=== PATIENT | female | born 1975 | race Hispanic/Latino ===

== ENCOUNTER → 2017-11-10 | Day surgery (SDC) | payer MEDICARE ==
[~2017-11-10] MED LIST: ATROPINE SULFATE 1 MG/ML VIAL IV ONE; BUPIVACAINE HCL 0.5% INJ 30 ML VIAL INJ ONE; CEFAZOLIN SOD 2 GM/D5W 50ML 50 ML IV ONE; CELEXA40 MG PO; CITALOPRAM HBR20 MG PO; CLONAZEPAM0.25 MG; CYMBALTA20 MG PO; DEXAMETHASONE SOD PHOS INJ 4 MG/ML VIAL IV ONE; DICLOFENAC SODI75 MG PO; EFFEXOR37.5 MG PO; FENTANYL CITRATE/PF 100MCG/2 ML INJ ONE; GABAPENTIN300 MG PO; KETOROLAC TROMETHAMINE 30 MG/ML VIAL IV ONE; LAMICTAL 50 MG; LASIX20 MG PO; LEVEMIR 3M100 UNITS/ SC; LIDOCAINE HCL 2% LOCAL INJ 5 ML SDV VIAL INJ ONE; LINZESS PO; LOVASTATIN 10 MG; METFORMIN HCL1000 MG PO; METFORMIN HCL500 MG PO; MIDAZOLAM HCL 2 MG/2 ML VIAL ONE; MULTIVITAMINS1 EAC8; NEOSTIGMINE 1 MG/ML 10ML VIAL ONE; NOVOLOG100 UNITS1 SC; ONDANSETRON HCL INJ 2 MG/ML VIAL IV ONE; PROPOFOL IV EMULSION 10 MG/ML 20 ML VIAL IV ONE; PROTONIX40 MG/ML PO; SEROQUEL200 MG PO; SEROQUEL25 MG PO; SEVOFLURANE INHAL SOLN 250 ML PEN BTL INH ONE; TRIAMTERENE-HCTZ1 EA PO; ULTRAM 50MG50 MG PO; VASOTEC5 MG PO; VITAMIN B12 INJ
--- NOTE | 2017-11-10 13:14 | Operative Report ---
DATE OF PROCEDURE: November 10, 2017 PICKING MACHINE OPERATOR: None. PREOPERATIVE DIAGNOSES 1. Tailor's bunion, right foot. 2. Hammertoe, 2nd, right foot. 3. Hammertoe, 3rd, right foot. 4. Hammertoe, 4th, right foot. 5. Hammertoe, 5th, right foot. 6. 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 PATHOLOGY: None. ANESTHESIA: General anesthetic. HEMOSTASIS: Pneumatic ankle tourniquet. ESTIMATED BLOOD LOSS: Less than 10 mL. MATERIALS 1. XFuse PIP joint implants for the PIPJ fusions of digits 2, 3, and 4 on the right. 2. Use of human allograft to prevent adhesions and to promote healing. COMPLICATIONS: None. CONDITION: Stable. PROCEDURE IN DETAIL: Under mild sedation, the patient was brought to the operating room and placed on the operating table in the supine position. Following IV sedation, anesthesia was obtained with a general anesthetic. At this point, the right foot was scrubbed, prepped and draped in the usual aseptic manner. It was then lowered to the table. Attention was directed to the dorsal aspect of the right foot, where an incision was made overlying the 2nd digit. The incision was deepened down to the level of the PIP joint. The PIP joint was then visualized. The extensor tendon was then tenotomized. Once the joint was visualized, the joint was prepared for fusion. It was then fused with a OwlTing ??? implant XFuse. There were noted to be adequate compression and adequate alignment clinically and with the use of intraop fluoroscopy. PIP joint arthrodesis, 3rd: This procedure was performed in the same exact manner as the procedure above. PIP joint arthrodesis, 4th: This procedure was performed in the exact same manner as the procedure above. Attention was then directed to the 5th digit, where a 2-cm linear incision was made overlying the proximal interphalangeal joint. The incision was deepened down to the level of the tendon. The extensor tendon was then tenotomized. The proximal phalanx was then removed in order to remove the contracture at the joint. Thee was noted to be a good alignment clinically and with the use of intraop fluoroscopy. Tailor's bunion. Attention was directed to the MPJ of the 5th, where a linear incision was made overlying the joint. The incision was deepened down to the level of the capsule. A linear capsulotomy was then performed, taking care to retract or cauterize neurovascular structures as necessary. Once the 5th metatarsal head was then exposed, utilizing an oscillating saw, the large protrusion exostosis was then removed. The area was then made smooth with a rotary bur. The area was then flushed with a copious amount of normal sterile saline solution. Tenotomy and capsulotomy, 2nd MPJ: Attention was then directed to the 2nd MPJ where a linear incision was made overlying the MPJ. The incision was deepened down to the level of the extensor tendon. The extensor tendon was then lengthened. The brevis was then tenotomized. The contracture was then decreased at the joint. Tenotomy and capsulotomy, 3rd MPJ. This procedure was performed in the exact same manner as the procedure named above. Tenotomy and capsulotomy, 4th MPJ. This procedure was performed in the exact same manner as the procedure named above. The areas were then flushed with copious amounts of normal sterile saline solution. The use of human allograft was then inserted into the area in order to promote healing and to prevent adhesions to the area. The areas were then closed, closing the deepest layer with 4-0 Vicryl and 4-0 nylon. A clean dressing was applied consisting of Adaptic ointment, 4 x 4's, Webril. A posterior splint was applied and was secured utilizing an Vitor bandage. The tourniquet was deflated, and there was noted to be hyperemic response to all the digits. The patient tolerated the procedure and the anesthesia well without complications. She was transported to the recovery room with vital signs stable and vascular status intact to both feet. The patient will be discharged home when she meets criteria. She was given instructions to be nonweightbearing, to ice and elevate the foot while at rest, to follow up with me in the office, and to call the office if any questions, concerns or any problems arise. Job#: [id number]
== END | disposition home or self-care (01) ==
LOC: OR 07:08
PROVIDERS: ATTEND Podiatrist Foot & Ankle Surgery
DX: M21.6X1 Other acquired deformities of right foot (principal); M20.41 Other hammer toe(s) (acquired), right foot; M24.574 Contracture, right foot; I44.7 Left bundle-branch block, unspecified; G47.33 Obstructive sleep apnea (adult) (pediatric); I10 Essential (primary) hypertension; E11.9 Type 2 diabetes mellitus without complications
CPT/HCPCS: 28110; 28270 ×3; 28285 ×4; 93005; J0461; J1100; J1885; J2001; J2250; J2405; J2710

== ENCOUNTER 2018-10-30 11:30 | Emergency (ER) | payer MEDICARE ==
[~2018-10-30] VITALS: Ht 167.6 cm; Wt 68.0 kg
[~2018-10-30 11:30] MED LIST changes: -ATROPINE SULFATE 1 MG/ML VIAL IV ONE; -BUPIVACAINE HCL 0.5% INJ 30 ML VIAL INJ ONE; -CEFAZOLIN SOD 2 GM/D5W 50ML 50 ML IV ONE; -DEXAMETHASONE SOD PHOS INJ 4 MG/ML VIAL IV ONE; -FENTANYL CITRATE/PF 100MCG/2 ML INJ ONE; -KETOROLAC TROMETHAMINE 30 MG/ML VIAL IV ONE; -LIDOCAINE HCL 2% LOCAL INJ 5 ML SDV VIAL INJ ONE; -MIDAZOLAM HCL 2 MG/2 ML VIAL ONE; -NEOSTIGMINE 1 MG/ML 10ML VIAL ONE; -ONDANSETRON HCL INJ 2 MG/ML VIAL IV ONE; -PROPOFOL IV EMULSION 10 MG/ML 20 ML VIAL IV ONE; -SEVOFLURANE INHAL SOLN 250 ML PEN BTL INH ONE
--- OUTSIDE RECORDS SUMMARY | 2018-10-30 11:34 | XMS REPORT | Clinical Summary ---
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 Active furosemide (LASIX) 20 mg Take 20 mg by 0 tablet mouth 2 (two) times a day. Active ranitidine (ZANTAC) 300 Take 300 mg 0 MG capsule by mouth every evening. Active cyclobenzaprine Take 5 mg by 0 (FLEXERIL) 5 mg tablet mouth 3 (three) times a day as needed for muscle spasms. Active topiramate (TOPAMAX) 50 Take 50 mg by 0 MG tablet mouth 2 (two) times a day. Active QUEtiapine (SEROquel) 200 Take 200 mg 0 MG tablet by mouth nightly. Active ondansetron (ZOFRAN) 4 MG Take 4 mg by 0 tablet mouth every 8 (eight) hours as needed for nausea or vomiting. Active lisinopril Take 2.5 mg 0 (PRINIVIL,ZESTRIL) 2.5 mg by mouth tablet daily. Active clonAZEPAM (KlonoPIN) 1 Take 1 mg by 0 MG tablet mouth 2 (two) times a day as needed for seizures. Active Problems Problem Noted Date Cervical spondylosis 05/05/2018 Encounters Care Team Description Date Type Specialty Yovany Prescott MD Spondylosis of cervical region without myelopathy or radiculopathy (Primary Dx) 05/05/2018 Office Visit Neurosurgery after 10/29/2017 Family History Medical History Relation Name Comments Cancer Paternal HIGH BLOOD PRESSURE/DIABETES, HEART PROBLEMS/GOUT, Grandfather THYROID TO LITTLE, THYROID TOO MUCH Relation Name Status Comments Paternal Grandfather Other Social History Date Tobacco Use Types Packs/Day Years Used Never Smoker Smokeless Tobacco: Never Used Alcohol Use Drinks/Week oz/Week Comments No Sex Assigned at Date Recorded Not on file Industry Job Start Date Occupation Not on file Not on file Not on file Travel End Travel History Travel Start No recent travel history available. Last Filed Vital Signs Time Taken Vital Sign Reading - Blood Pressure - - Pulse - - Temperature - - Respiratory Rate - - Oxygen Saturation - - Inhaled Oxygen - Concentration 05/01/2018 8:52 AM CDT Weight 65.8 kg (145 lb) 05/01/2018 8:52 AM CDT Height 167.6 cm (5' 6") 05/01/2018 8:52 AM CDT Body Mass Index 23.4 Plan of Treatment Health Maintenance Due Date Last Done Comments CERVICAL CANCER SCREENING 1994 INFLUENZA VACCINE 06/23/2018 HEPATITIS B VACCINES Aged Out No longer eligible based on patient's age to complete this topic IPV VACCINES Aged Out No longer eligible based on patient's age to complete this topic MENINGOCOCCAL VACCINE Aged Out No longer eligible based on patient's age to complete this topic Results Not on fileafter 10/29/2017 Insurance Payer Benefit Subscriber ID Type Phone Address Plan / Group MEDICARE MEDICARE xxxxxxxxxx Medicare [place], [place] PART A [place] B MEDICAID MEDICAID xxxxxxxxx Medicaid Advance Directives Patient has advance care planning documents on file. For more information, arnol jimenez contact: Tin Spencer [phone] [place] [address]
--- OUTSIDE RECORDS SUMMARY | 2018-10-30 11:34 | XMS REPORT | Continuity of Care Document ---
Author Author Randa noy [facility] Interface Address Unknown Phone Unavailable Problems Problem Status Onset Date Classification Date Reported Comments Source Pain in right foot 01/29/2018 05/01/2018 [facility] RT FOOT AND ANKLE Active 12/17/2017 [facility] RUQ PAIN Active 10/20/2017 [facility] SI Active 09/15/2017 [facility] Discharge Diagnosis: LUQ abdominal pain 02/05/2017 02/09/2017 [facility] Discharge Diagnosis: Vertigo 02/05/2017 02/09/2017 [facility] VOMITING Active 02/05/2017 [facility] I50.22 - CHRONIC SYSTOLIC (CONGESTIVE) Active 12/04/2016 [facility] [place] [place] NAUSEA/VOMITING Active 03/08/2016 [facility] DEHYDRATION, NEW ONSET VERTIGO Active 03/08/2016 [facility] 726.2 - SHOULDER REGION Active 08/20/2015 [facility] [place] Discharge Diagnosis: Back pain 03/06/2015 03/08/2015 [facility] 724.4 - LUMBOSACRAL BIJAL Active 03/06/2015 [facility] [place] LUMBAR RADICULOPATHY WITH NEURO DEFICITS Active 03/03/2015 [facility] 789.06 - ABDMNAL PAIN EP Active 12/08/2013 [facility] Apnea, sleep Resolved Problem 05/21/2018 [facility] Depression Resolved Problem 05/21/2018 [facility] [place] Diabetes Resolved Problem 05/21/2018 [facility] HDL - High density lipoprotein cholesterol Resolved Problem 05/21/2018 [facility] HTN (<span ID="[id number]">Confirmed</span>) Resolved Problem 05/21/2018 [facility] [place] HTN (<span ID="[id number]">Confirmed</span>) Resolved Problem 05/21/2018 [facility] Depression with anxiety Resolved Problem 05/21/2018 [facility] Suicidal ideations Resolved Problem 05/21/2018 [facility] Stiffness of right foot, not elsewhere classified 05/01/2018 [facility] Difficulty in walking, not elsewhere classified 05/01/2018 [facility] Muscle wasting and atrophy, not elsewhere classified, unspecified site 05/01/2018 [facility] Other hammer toe (acquired), right foot 05/01/2018 [facility] Apnea, sleep Resolved Problem 05/01/2018 [facility] Diabetes Resolved Problem 05/01/2018 [facility] HDL - High density lipoprotein cholesterol Resolved Problem 05/01/2018 [facility] HTN (<span ID="[id number]">Confirmed</span>) Resolved Problem 05/01/2018 [facility] Depression with anxiety Resolved Problem 05/01/2018 [facility] Suicidal ideations Resolved Problem 05/01/2018 [facility] RIGHT UPPER QUADRANT PAIN Active [facility] Medications Medication Details Route Status Patient Instructions Ordering Provider Order Date Source Zofran 4 mg, Route: IVP, Drug form: INJ, ONCE, Dosing Weight 75, kg, Priority: STAT, Start date: 09/15/17 20:14:00 CDT, Stop date: 09/15/17 20:14:00 CDT Inactive 09/16/2017 [facility] Latuda 40 mg, Route: PO, ONCE, Dosing Weight 75, kg, Start date: 09/15/17 19:51:00 CDT, Stop date: 09/15/17 19:51:00 CDT Inactive 09/16/2017 [facility] Ondansetron 4 mg, Route: IVP, Drug form: INJ, ONCE, Dosing Weight 75, kg, Priority: STAT, Start date: 09/15/17 16:38:00 CDT, Stop date: 09/15/17 16:38:00 CDT Inactive 09/15/2017 [facility] Ativan 1 mg, 0.5 mL, Route: IVP, Drug form: INJ, ONCE, Dosing Weight 75, kg, Priority: STAT, Start date: 09/15/17 15:37:00 CDT, Stop date: 09/15/17 15:37:00 CDTNotes: (Same as: Ativan) Inactive 09/15/2017 [facility] NS (Bolus) IV 1,000 mL, 1,000 ml/hr, Infuse Over: 1 hr, Route: IV, 1,000, Drug form: INJ, ONCE, Priority: STAT, Dosing Weight 75 kg, Start date: 09/15/17 14:42:00 CDT, Duration: 1 doses or times, Stop date: 14:42:00 CDT Inactive 09/15/2017 [facility] meclizine 25 mg oral tablet 25 mg=1 tab, PO, TID, PRN dizziness, X 10 day, # 30 tab, 0 Refill(s) Active 02/06/2017 [facility] Morphine 4 mg, 1 mL, Route: IVP, Drug form: SOLN, ONCE, Dosing Weight 72.727, kg, Priority: STAT, Start date: 02/05/17 19:31:00 CDT, Stop date: 02/05/17 19:31:00 CDTNotes: (Same as:MORPhine Sulfate) Inactive 02/06/2017 [facility] Benadryl 50 mg, 1 mL, Route: IVP, Drug form: INJ, ONCE, Dosing Weight 72.727, kg, Priority: STAT, Start date: 02/05/17 18:51:00 CDT, Stop date: 02/05/17 18:51:00 CDTNotes: (Same as: Benadryl) Inactive 02/05/2017 [facility] Reglan 10 mg, 2 mL, Route: IVP, Drug form: INJ, ONCE, Dosing Weight 72.727, kg, Priority: STAT, Start date: 02/05/17 18:51:00 CDT, Stop date: 02/05/17 18:51:00 CDTNotes: (Same as: Reglan) Inactive 02/05/2017 [facility] pantoprazole 40 MG Enteric Coated Tablet [Protonix] 40 mg=1 tab, PO, Daily, # 30 tab, 0 Refill(s) Active 03/09/2016 [facility] Ondansetron 4 MG Oral Tablet [Zofran] 4 mg=1 tab, PO, Q6H, PRN Nausea, # 20 tab, 0 Refill(s) Active 03/09/2016 [facility] meclizine 25 mg oral tablet 25 mg=1 tab, PO, TID, PRN as needed for dizziness, # 30 tab, 0 Refill(s) Active 03/09/2016 [facility] Meclizine 25 mg, 1 tab, Route: PO, Drug form: TAB, TID, Dosing Weight 100.9, kg, Priority: NOW, Start date: 03/09/16 11:29:00 CDT, Duration: 30 day, Stop date: 04/08/16 9:00:00 CDTNotes: (Same as: Antivert) Inactive 03/09/2016 [facility] potassium chloride 40 mEq, 30 mL, Route: PO, Drug form: LIQ, ONCE, Dosing Weight 100.9, kg, Start date: 03/09/16 11:27:00 CDT, Stop date: 03/09/16 11:27:00 CDTNotes: (Same as: Potassium Chloride) Inactive 03/09/2016 [facility] Solu-Medrol 125 mg, 2 mL, Route: IVP, Drug form: INJ, ONCE, Dosing Weight 100.9, kg, Start date: 03/09/16 11:26:00 CDT, Stop date: 03/09/16 11:26:00 CDTNotes: (Same as:Solu-MEDROL, A-Methapred) Inactive 03/09/2016 [facility] Protonix 40 mg, Route: IVP, Drug form: INJ, ONCE, Dosing Weight 100.9, kg, Start date: 03/09/16 11:26:00 CDT, Stop date: 03/09/16 11:26:00 CDTNotes: For IV push reconstitute with 10 ml 0.9% sodium chloride and push over 2 minutes. (Same as: Protonix) Inactive 03/09/2016 [facility] Thiamine 100 mg, 1 mL, Route: IVPB, Drug form: INJ, ONCE, Dosing Weight 100.9, kg, Start date: 03/09/16 11:26:00 CDT, Stop date: 03/09/16 11:26:00 CDTNotes: (Same As: Vitamin B1) Inactive 03/09/2016 [facility] nitroglycerin 0.4 mg sublingual tablet 0.4 mg, 1 tab, Route: SL, Drug form: TAB, Q5Min, PRN Chest Pain, Start date: 03/08/16 21:50:00 CDT, Duration: 30 day, Stop date: 04/07/16 21:49:00 CDTNotes: (Same as:Nitroquick, Nitrostat) "Do Not Crush" Sublingual tablet No Longer Active 03/09/2016 [facility] atropine 0.5 mg, 5 mL, Route: IVP, Drug form: INJ, PRN, PRN Bradycardia, Start date: 03/08/16 21:50:00 CDT, Duration: 30 day, Stop date: 04/07/16 21:49:00 CDT No Longer Active 03/09/2016 [facility] normal saline 0.9% IV 1,000 mL 1,000 mL, Rate: 100 ml/hr, Infuse over: 10 hr, Route: IV, Dosing Weight 100.909 kg, Total Volume: 1,000, Start date: 03/08/16 17:57:00 CDT, Stop date: 04/07/16 17:56:00 CDT No Longer Active 03/08/2016 [facility] Meclizine 25 mg, 1 tab, Route: PO, Drug form: TAB, ONCE, Dosing Weight 100.909, kg, Priority: STAT, Start date: 03/08/16 17:48:00 CDT, Stop date: 03/08/16 17:48:00 CDTNotes: (Same as: Antivert) Inactive 03/08/2016 [facility] Insulin, Aspart, Human 5 unit, 0.05 mL, Route: SUB-Q, Drug form: SOLN, TID-Before Meals, Dosing Weight 100.909, kg, PRN Blood Glucose Results, Start date: 03/08/16 17:47:00 CDT, Duration: 30 day, Stop date: 04/07/16 17:46:00 CDTNotes: Roll in palms of hands gently; Do not shake vigorously. (Same as: NovoLOG) "single patient use only" WASTE: F/P - Black; E - Municipal Trash Bin Stable for 28 days at room temperature. Expires in days from Date No Longer Active 03/08/2016 [facility] Glucagon 1 mg, Route: IM, Drug form: PDR/INJ, PRN, Dosing Weight 100.909, kg, PRN Blood Glucose Results, Start date: 03/08/16 17:47:00 CDT, Duration: 30 day, Stop date: 04/07/16 17:46:00 CDT No Longer Active 03/08/2016 [facility] Dextrose 50% Syringe 25 gm, 50 mL, Route: IVP, Drug Form: INJ, Dosing Weight 100.909, kg, PRN, PRN Blood Glucose Results, Start date: 03/08/16 17:47:00 CDT, Duration: 30 day, Stop date: 04/07/16 17:46:00 CDT No Longer Active 03/08/2016 [facility] Acetaminophen 325 mg, 1 tab, Route: PO, Drug form: TAB, Q4H, Dosing Weight 100.909, kg, PRN Pain Score 4-6, Start date: 03/08/16 17:46:00 CDT, Duration: 30 day, Stop date: 04/07/16 17:45:00 CDTNotes: Do not exceed 4 gm/day. (Same as: Tylenol) No Longer Active 03/08/2016 [facility] Morphine 2 mg, 1 mL, Route: IVP, Drug form: INJ, Q4H, Dosing Weight 100.909, kg, PRN Pain Score 7-10, Start date: 03/08/16 17:46:00 CDT, Duration: 30 day, Stop date: 04/07/16 17:45:00 CDTNotes: (Same as:MORPhine Sulfate) No Longer Active 03/08/2016 [facility] Ondansetron 4 mg, 2 mL, Route: IVP, Drug form: INJ, Q6H, Dosing Weight 100.909, kg, PRN Nausea & Vomiting, Start date: 03/08/16 17:46:00 CDT, Duration: 30 day, Stop date: 04/07/16 17:45:00 CDTNotes: (Same as: Zofran) MEDICATION WASTE Product Size: 4 mg Product Wasted: ___ mg No Longer Active 03/08/2016 [facility] Sodium Chloride 0.154 MEQ/ML Injectable Solution 1,000 mL, 1,000 ml/hr, Infuse Over: 1 hr, Route: IV, 1,000, Drug form: INJ, ONCE, Priority: STAT, Dosing Weight 100.909 kg, Start date: 03/08/16 15:58:00 CDT, Duration: 1 doses or times, Stop date: 03/08/16 15:58:00 CDT Inactive 03/08/2016 [facility] Meclizine 25 mg, 1 tab, Route: PO, Drug form: TAB, ONCE, Dosing Weight 100.909, kg, Priority: STAT, Start date: 03/08/16 15:40:00 CDT, Stop date: 03/08/16 15:40:00 CDTNotes: (Same as: Antivert) Inactive 03/08/2016 [facility] Sodium Chloride 0.154 MEQ/ML Injectable Solution 1,000 mL, 1,000 ml/hr, Infuse Over: 1 hr, Route: IV, 1,000, Drug form: INJ, ONCE, Priority: STAT, Dosing Weight 100.909 kg, Start date: 03/08/16 15:15:00 CDT, Duration: 1 doses or times, Stop date: 03/08/16 15:15:00 CDT Inactive 03/08/2016 [facility] potassium chloride 10 mEq, 100 mL, Route: IVPB, Drug form: INJ, Q1H, Dosing Weight 100.909, kg, Total Dose=40 meq, Start date: 03/08/16 15:00:00 CDT, Duration: 4 doses or times, Stop date: 03/08/16 18:00:00 CDT, Peripheral LineNotes: Infuse at a rate of 10 mEq/hr. (Same as: KCL) Inactive 03/08/2016 [facility] Tylenol 650 mg, 2 tab, Route: PO, Drug form: TAB, ONCE, Dosing Weight 100.909, kg, Priority: STAT, Start date: 03/08/16 14:23:00 CDT, Stop date: 03/08/16 14:23:00 CDTNotes: Do not exceed 4 gm/day. (Same as: Tylenol) Inactive 03/08/2016 [facility] Sodium Chloride 0.154 MEQ/ML Injectable Solution 1,000 mL, 1,000 ml/hr, Infuse Over: 1 hr, Route: IV, 1,000, Drug form: INJ, ONCE, Priority: STAT, Dosing Weight 100.909 kg, Start date: 03/08/16 14:22:00 CDT, Duration: 1 doses or times, Stop date: 03/08/16 14:22:00 CDT Inactive 03/08/2016 [facility] Ondansetron 4 mg, 2 mL, Route: IVP, Drug form: INJ, ONCE, kg, Priority: STAT, Start date: 03/08/16 11:33:00 CDT, Stop date: 03/08/16 11:33:00 CDTNotes: (Same as: Zofran) MEDICATION WASTE Product Size: 4 mg Product Wasted: ___ mg Inactive 03/08/2016 [facility] Famotidine 20 mg, 2 mL, Route: IVP, Drug form: INJ, ONCE, kg, Priority: STAT, Start date: 03/08/16 11:33:00 CDT, Stop date: 03/08/16 11:33:00 CDTNotes: (Same as: Pepcid) Can be dilute in 5-10cc NS IVP: Slow IV push over at least 2 minutes. Inactive 03/08/2016 [facility] GI cocktail 30 mL, Route: PO, Drug Form: SUSP, kg, ONCE, STAT, Start date: 03/08/16 11:33:00 CDT, Stop date: 03/08/16 11:33:00 CDTNotes: G.I. Cocktail=antacid with simethicone 22.5 mL - lidocaine viscous 7.5 mL Inactive 03/08/2016 [facility] Saline Flush 0.9% 10 mL, Route: IVP, Drug Form: INJ, kg, PRN, PRN Line Flush, Start date: 03/08/16 11:33:00 CDT, Duration: 30 day, Stop date: 04/07/16 11:32:00 CDTNotes: (Same as: BD Posiflush) No Longer Active 03/08/2016 [facility] Sodium Chloride 0.154 MEQ/ML Injectable Solution 1,000 mL, 1000 ml/hr, Infuse Over: 1 hr, Route: IV, 1,000, Drug form: INJ, ONCE, Priority: STAT, kg, Start date: 03/08/16 11:33:00 CDT, Duration: 1 doses or times, Stop date: 03/08/16 11:33:00 CDT Inactive 03/08/2016 [facility] Acetaminophen 325 MG / Hydrocodone Bitartrate 5 MG Oral Tablet 1 tab, Route: PO, Drug Form: TAB, Dosing Weight 118.182, kg, ONCE, STAT, Start date: 03/06/15 10:43:00, Stop date: 03/06/15 10:43:00 Inactive 03/06/2015 [facility] Ondansetron 4 mg, Route: IVP, Drug form: INJ, ONCE, Dosing Weight 118.182, kg, Priority: STAT, Start date: 03/06/15 10:23:00, Stop date: 03/06/15 10:23:00 Inactive 03/06/2015 [facility] Morphine 4 mg, Route: IVP, Drug form: INJ, ONCE, Dosing Weight 118.182, kg, Priority: STAT, Start date: 03/06/15 6:58:00, Stop date: 03/06/15 6:58:00 Inactive 03/06/2015 [facility] Ativan 1 mg, Route: IVP, Drug form: INJ, ONCE, Dosing Weight 118.182, kg, Priority: STAT, Start date: 03/06/15 6:58:00, Stop date: 03/06/15 6:58:00 Inactive 03/06/2015 [facility] Zofran 4 mg, Route: IVP, Drug form: INJ, ONCE, Dosing Weight 118.182, kg, Priority: STAT, Start date: 03/06/15 4:10:00, Stop date: 03/06/15 4:10:00 Inactive 03/06/2015 [facility] NS 1,000 mL 1,000 mL, Rate: 1,000 ml/hr, Infuse over: 1 hr, Route: IV, Dosing Weight 118.182 kg, Total Volume: 1,000, Start date: 03/06/15 4:09:00, Duration: 1 doses or times, Stop date: 03/06/15 5:08:00, Bolus DoseSpecial Instructions: Bolus Dose Inactive 03/06/2015 [facility] Dilaudid 1 mg, Route: IVP, ONCE, Dosing Weight 118.182, kg, Priority: STAT, Start date: 03/06/15 4:09:00, Stop date: 03/06/15 4:09:00 Inactive 03/06/2015 [facility] Allergies, Adverse Reactions, Alerts Substance Category Reaction Severity Reaction type Status Date Reported Comments Source Lyrica Assertion Drug allergy Active [facility] code[facility] Assertion Drug allergy Active [facility] Immunizations Immunization Date Given Site Status Last Updated Comments Source Results Order Name Results Value Reference Range Date Interpretation Comments Source Gallbladder scan HIDA w meds NM Gallbladder scan HIDA w meds NM HEPATOBILIARY SCAN WITH GALLBLADDER EJECTION FRACTION: HISTORY: Right upper quadrant pain. PROCEDURE: 5.9 mCi of technetium 99m Choletec were given intravenously followed by anterior planar imaging over the upper abdomen. Following adequate gallbladder filling, 1.4 mcg of cholecystokinin were infused intravenously over 30 minutes, during which a dynamic study over the gallbladder was done over 45 minutes. There was no pain elicited during the procedure. FINDINGS: There is prompt uptake and excretion of activity by the liver with prompt visualization of the biliary tree, gallbladder and small bowel. The gallbladder ejection fraction is 71%. IMPRESSION: 1. 71% gallbladder ejection fraction (normal > 35%). 2. Otherwise normal hepatobiliary scan. 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 COMPARISON: None. TECHNIQUE: Multiplanar grayscale and color Doppler ultrasound images of the right upper quadrant of the abdomen. FINDINGS: Liver: Some portions of the liver are obscured by overlying shadowing from adjacent structures. Craniocaudal length: 14.3 cm. Normal. Echogenicity: Mildly increased. Surface nodularity: None Mass (size and location): None. Portal vein: Normal. Bile ducts: Common bile duct diameter: 8 mm. Prominent. No constricting or obstructing lesions are seen. No calculi. The distal common bile duct is obscured by overlying bowel gas. Intrahepatic ducts: Normal. Gallbladder: Normal. Gallstones: None. Gallbladder sludge: None. Gallbladder wall: 2.7 mm. Normal. Pericholecystic fluid: None. Sonographic Dawn sign: Absent. Pancreas: No abnormalities of the visualized portions of the pancreas are seen. Portions of the pancreatic head and tail are obscured by overlying bowel gas. Right kidney: Size: 10.4 x 5.9 x 5.9 cm. Normal. Hydronephrosis: None Echogenicity: Normal. Mass/Stone/Cyst (size and location): None. Abdominal aorta and IVC: Visualized portions are normal. Ascites: None Pleural effusion: None. IMPRESSION: 1. Nonspecific mild increased liver echogenicity, nonspecific finding most commonly caused by fatty infiltration (steatosis) of the liver. 2. No abnormalities of the gallbladder are seen. 3. The common bile duct is prominent at 8 mm in maximal diameter with no distinct constricting or obstructing lesions or calculi within it. The distal common bile duct is obscured by overlying bowel gas. If there is clinical or laboratory evidence of biliary ductal obstruction, MRCP would be the next imaging study of choice for further evaluation. 10/13/2017 - - Read by: Yovany Gauthier MD Dictated Date/time: 10/13/17 11:43 Electronically Signed by: Yovany Gauthier MD 10/13/17 11:46 FINAL REPORT [facility] Abdomen RUQ US Abdomen RUQ US RIGHT UPPER QUADRANT ABDOMINAL ULTRASOUND DATED 09/16/2017 CLINICAL INDICATION: Acute abdominal pain. Vomiting. COMPARISON: CT abdomen dated 09/15/2017 TECHNIQUE: Sonographic evaluation of the right upper quadrant was performed with supplemental color and pulsed Doppler. FINDINGS: LIVER: The liver is normal in size and contour and maintains normal parenchymal echotexture. GALLBLADDER: The gallbladder is normally distended without evidence of gallstones. There is no evidence of gallbladder wall thickening or pericholecystic fluid to suggest acute inflammation. The sonographic Dawn's sign was reported as negative. BILE DUCTS: The common bile duct is normal in caliber measuring 4 mm. PANCREAS: The pancreas is obscured by overlying bowel gas. RIGHT KIDNEY: The right kidney measures 11.0 cm in length. The right kidney is normal in size and contour and maintains normal cortical echotexture. There is no evidence of hydronephrosis, nephrolithiasis, mass lesion or perinephric fluid collection. Additional comments: No free intraperitoneal fluid is identified in the right upper quadrant. The inferior vena cava and abdominal aorta are not well visualized. IMPRESSION: 1. No sonographic evidence of cholelithiasis or acute cholecystitis. SL:[id number] 09/16/2017 - - Read by: Ming Armando MD Dictated Date/time: 09/16/17 01:49 Electronically Signed by: Ming Armando MD 09/16/17 01:52 FINAL REPORT [facility] Abdomen/Pelvis w IV contrast CT Abdomen/Pelvis w IV contrast CT Clinical Indication: Vomiting, history of gastric bypass. Comparison: 02/05/2017 TECHNIQUE: Sequential trans-axial images were obtained with a multi-detector helical CT after administration of iodinated contrast. Delayed images through the abdomen and pelvis were also obtained. Coronal and sagittal reconstructions were obtained. 100 mL of Omnipaque contrast material was used for the exam. CT Radiation Dose DLP 1881.10 mGy-cm FINDINGS: CHEST BASE: No focal infiltrate. No effusion or pneumothorax. Heart size normal. No pericardial effusion. LIVER: Size within normal limits. Normal contours. Enhancement pattern within normal limits. Calcified granulomas noted. GALLBLADDER: Distended. No radiopaque gallstones. No pericholecystic fluid. Extrahepatic common bile duct measures up to 9 mm. PANCREAS: Normal enhancement pattern. No surrounding inflammation. SPLEEN: Normal size. No obvious lesions. ADRENAL GLANDS: Normal contour bilaterally. No detected lesions. KIDNEYS/COLLECTING SYSTEMS: Right kidney: Normal size and contour. No abnormal enhancement pattern. No calcified stones. Right ureter: No hydronephrosis or obstructing calcified stone. Left kidney: Normal size and contour. No abnormal enhancement pattern. No calcified stones. Left ureter: No hydronephrosis or obstructing calcified stone. Bladder: Partially decompressed.. No filling defects identified on the delayed images. BOWEL: Stomach: Gastric bypass changes.. Small bowel: Oral contrast passes throughout the proximal small bowel without an obstructive pattern. No contrast extravasation identified. No obstructive pattern. No suspected inflammation. Appendix: Visualized portions noninflamed. Large bowel: Within normal limits. PERITONEUM/RETROPERITONEUM: No organized fluid collection. No free air. No pathologically enlarged lymph nodes are seen in the abdomen, retroperitoneum, or pelvis. Aorta is normal in caliber without aneurysmal dilatation. MUSCULOSKELETAL: No acute fracture or dislocation. No obvious disc bulges cause impression upon the ventral thecal sac at several levels in the lumbar spine without severe spinal canal stenosis. Moderate severe bilateral facet arthropathy in the lower lumbar spine. No lytic or blastic lesion. Mild anasarca. Remaining surrounding subcutaneous tissues within normal limits. IMPRESSION: 1. Gastric bypass changes without visualized complicating features. 2. Gallbladder distention without radiopaque gallstones. Extrahepatic common bile duct appears mildly dilated. If indicated, right upper quadrant ultrasound may be performed for further assessment. 3. Mild anasarca. SL: [id number] 09/15/2017 - - Read by: Andres Olguin MD Dictated Date/time: 09/15/17 23:24 Electronically Signed by: Andres Olguin MD 09/15/17 23:32 FINAL REPORT [facility] ENDOCRINOLOGY S Preg Negative *NA* (09/15/17 3:36 PM) Negative 09/15/2017 [facility] CHEM PANEL Lipase Lvl 246 unit/L 73 - 393 09/15/2017 [facility] CHEM PANEL B/C Ratio 13 6 - 25 09/15/2017 [facility] CHEM PANEL A/G Ratio 1.0 0.7 - 1.6 09/15/2017 [facility] CHEM PANEL Globulin 3.6 g/dL 2.7 - 4.2 09/15/2017 [facility] CHEM PANEL AGAP 9.8 meq/L 10.0 - 20.0 09/15/2017 [facility] CHEM PANEL eGFR 77 mL/min/1.73m2 09/15/2017 Result Comment: The eGFR is calculated using the CKD-EPI formula. In most young, healthy individuals the eGFR will be >90 mL/min/1.73m2. The eGFR declines with age. An eGFR of 60-89 may be normal in some populations, particularly the elderly, for whom the CKD-EPI formula has not been extensively validated. Use of the eGFR is not recommended in the following populations: Individuals with unstable creatinine concentrations, including patients and those with serious co-morbid conditions. Patients with extremes in muscle mass or diet. The data above are obtained from the National Kidney Disease Education Program (NKDEP) which additionally recommends that when the eGFR is used in patients with extremes of body mass index for purposes of drug dosing, the eGFR should be multiplied by the estimated BMI. [facility] CHEM PANEL Bili Total 0.4 mg/dL 0.2 - 1.3 09/15/2017 [facility] CHEM PANEL AST 22 unit/L 0 - 37 09/15/2017 [facility] CHEM PANEL Alk Phos 60 unit/L 39 - 136 09/15/2017 [facility] CHEM PANEL Creatinine Lvl 0.91 mg/dL 0.50 - 1.40 09/15/2017 [facility] CHEM PANEL Potassium Lvl 3.8 meq/L 3.5 - 5.1 09/15/2017 [facility] CHEM PANEL Chloride Lvl 108 meq/L 95 - 109 09/15/2017 [facility] CHEM PANEL CO2 26 meq/L 24 - 32 09/15/2017 [facility] CHEM PANEL Calcium Lvl 8.5 mg/dL 8.5 - 10.5 09/15/2017 [facility] CHEM PANEL Total Protein 7.2 g/dL 6.4 - 8.4 09/15/2017 [facility] CHEM PANEL Glucose Lvl 125 mg/dL 70 - 99 09/15/2017 [facility] CHEM PANEL BUN 12 mg/dL 7 - 22 09/15/2017 [facility]M PANEL Sodium Lvl 140 meq/L 135 - 145 09/15/2017 [facility] CHEM PANEL Albumin Lvl 3.6 g/dL 3.5 - 5.0 09/15/2017 [facility] CHEM PANEL ALT 18 unit/L 0 - 65 09/15/2017 [facility] DRUG SCREEN U Phencyc Scr Negative *NA* (09/15/17 3:32 PM) Negative 09/15/2017 [facility] DRUG SCREEN UDS Note See Note (09/15/17 3:32 PM) 09/15/2017 [facility] DRUG SCREEN U Opiate Scr Negative *NA* (09/15/17 3:32 PM) Negative 09/15/2017 [facility] DRUG SCREEN U Benzodia Scr Negative *NA* (09/15/17 3:32 PM) Negative 09/15/2017 [facility] DRUG SCREEN U Cannab Scr Positive *ABN* (09/15/17 3:32 PM) Negative 09/15/2017 [facility] DRUG SCREEN U Cocaine Scr Negative *NA* (09/15/17 3:32 PM) Negative 09/15/2017 [facility] DRUG SCREEN U Amph Scr Negative *NA* (09/15/17 3:32 PM) Negative 09/15/2017 [facility] DRUG SCREEN U Paula Scr Negative *NA* (09/15/17 3:32 PM) Negative 09/15/2017 [facility] HEMATOLOGY Lymphocytes # 1.7 K/CMM 1.0 - 5.5 09/15/2017 [facility] HEMATOLOGY Segs-Bands # 2.3 K/CMM 1.5 - 8.1 09/15/2017 [facility] HEMATOLOGY Eosinophils # 0.1 K/CMM 0.0 - 0.5 09/15/2017 [facility] HEMATOLOGY Monocytes # 0.4 K/CMM 0.0 - 0.8 09/15/2017 [facility] HEMATOLOGY Eosinophils 1.2 % 0.0 - 4.0 09/15/2017 [facility] HEMATOLOGY Monocytes 9.4 % 2.0 - 12.0 09/15/2017 [facility] HEMATOLOGY Lymphocytes 37.8 % 20.0 - 40.0 09/15/2017 [facility] HEMATOLOGY Basophils 0.3 % 0.0 - 1.0 09/15/2017 [facility] HEMATOLOGY Segs 51.3 % 45.0 - 75.0 09/15/2017 [facility] HEMATOLOGY Hct 36.6 % 36.0 - 48.0 09/15/2017 [facility] MCV 87.2 fL 80.0 - 98.0 09/15/2017 [facility] HEMATOLOGY Hgb 12.8 g/dL 12.0 - 16.0 09/15/2017 [facility] MCH 30.5 pg 27.0 - 31.0 09/15/2017 [facility] HEMATOLOGY RBC 4.20 M/CMM 4.20 - 5.40 09/15/2017 [facility] HEMATOLOGY WBC 4.5 K/CMM 3.7 - 10.4 09/15/2017 [facility] HEMATOLOGY RDW 13.4 % 11.5 - 14.5 09/15/2017 [facility] HEMATOLOGY Platelet 103 K/CMM 133 - 450 09/15/2017 [facility] MCHC 35.0 g/dL 32.0 - 36.0 09/15/2017 [facility] HEMATOLOGY MPV 9.0 fL 7.4 - 10.4 09/15/2017 [facility] TOXICOLOGY Salicylate Lvl 8.9 mg/dL 0.0 - 30.0 09/15/2017 [facility] TOXICOLOGY Etoh (%) null 09/15/2017 [facility] TOXICOLOGY Ethanol Lvl null 09/15/2017 [facility] TOXICOLOGY Acetaminoph Lvl <2
(09/15/17 3:32 PM) 10 - 20 09/15/2017 [facility] Chest 1view DX Chest 1view DX Clinical Indication: Feeling depressed. Comparison: 02/05/2017. TECHNIQUE: AP 1 view chest radiograph was performed. FINDINGS: LUNGS: Normal lung volumes. No interstitial or airspace opacities. No pleural effusions or pneumothorax. HEART AND MEDIASTINUM: The heart size is normal. The pulmonary vasculature is normal. The mediastinal contour is normal. The trachea is midline. OSSEOUS STRUCTURES: No acute abnormality seen. IMPRESSION: 1. No AP chest radiographic evidence of acute cardiopulmonary disease. SL: [id number] 09/15/2017 - - Read by: Richie Burdick MD Dictated Date/time: 09/15/17 15:32 Electronically Signed by: Richie Burdick MD 09/15/17 15:32 FINAL REPORT [facility] CARDIAC ENZYMES Troponin-I null 0.00 - 0.40 02/06/2017 [facility] CHEM PANEL Lipase Lvl 214 unit/L 73 - 393 02/06/2017 [facility] CHEM PANEL A/G Ratio 0.8 0.7 - 1.6 02/06/2017 [facility] CHEM PANEL AGAP 12.1 meq/L 10.0 - 20.0 02/06/2017 [facility] CHEM PANEL B/C Ratio 13 6 - 25 02/06/2017 [facility] CHEM PANEL Globulin 3.7 g/dL 2.7 - 4.2 02/06/2017 [facility] CHEM PANEL eGFR 87 mL/min/1.73m2 02/06/2017 Result Comment: The eGFR is calculated using the CKD-EPI formula. In most young, healthy individuals the eGFR will be >90 mL/min/1.73m2. The eGFR declines with age. An eGFR of 60-89 may be normal in some populations, particularly the elderly, for whom the CKD-EPI formula has not been extensively validated. Use of the eGFR is not recommended in the following populations: Individuals with unstable creatinine concentrations, including patients and those with serious co-morbid conditions. Patients with extremes in muscle mass or diet. The data above are obtained from the National Kidney Disease Education Program (NKDEP) which additionally recommends that when the eGFR is used in patients with extremes of body mass index for purposes of drug dosing, the eGFR should be multiplied by the estimated BMI. [facility] CHEM PANEL Potassium Lvl 4.1 meq/L 3.5 - 5.1 02/06/2017 [facility] CHEM PANEL Chloride Lvl 111 meq/L 95 - 109 02/06/2017 [facility] CHEM PANEL CO2 23 meq/L 24 - 32 02/06/2017 [facility] CHEM PANEL Creatinine Lvl 0.83 mg/dL 0.50 - 1.40 02/06/2017 [facility] CHEM PANEL Sodium Lvl 142 meq/L 135 - 145 02/06/2017 [facility] CHEM PANEL Albumin Lvl 3.1 g/dL 3.5 - 5.0 02/06/2017 [facility] CHEM PANEL ALT 24 unit/L 0 - 65 02/06/2017 [facility] CHEM PANEL AST 25 unit/L 0 - 37 02/06/2017 [facility] CHEM PANEL Calcium Lvl 8.1 mg/dL 8.5 - 10.5 02/06/2017 [facility] CHEM PANEL Total Protein 6.8 g/dL 6.4 - 8.4 02/06/2017 [facility] CHEM PANEL Glucose Lvl 104 mg/dL 70 - 99 02/06/2017 [facility] CHEM PANEL BUN 11 mg/dL 7 - 22 02/06/2017 [facility] CHEM PANEL Bili Total 0.3 mg/dL 0.2 - 1.3 02/06/2017 [facility] CHEM PANEL Alk Phos 80 unit/L 39 - 136 02/06/2017 [facility] ENDOCRINOLOGY S Preg Negative *NA* (02/05/17 7:57 PM) Negative 02/06/2017 [facility] HEMATOLOGY Platelet 121 K/CMM 133 - 450 02/06/2017 [facility] HEMATOLOGY MPV 10.0 fL 7.4 - 10.4 02/06/2017 [facility] HEMATOLOGY WBC 8.0 K/CMM 3.7 - 10.4 02/06/2017 [facility] HEMATOLOGY RBC 3.88 M/CMM 4.20 - 5.40 02/06/2017 [facility] HEMATOLOGY MCH 30.3 pg 27.0 - 31.0 02/06/2017 [facility] MCHC 34.5 g/dL 32.0 - 36.0 02/06/2017 [facility] HEMATOLOGY MCV 87.8 fL 80.0 - 98.0 02/06/2017 [facility] HEMATOLOGY RDW 13.6 % 11.5 - 14.5 02/06/2017 [facility] HEMATOLOGY Hct 34.0 % 36.0 - 48.0 02/06/2017 [facility] HEMATOLOGY Hgb 11.7 g/dL 12.0 - 16.0 02/06/2017 [facility] HEMATOLOGY Monocytes # 0.4 K/CMM 0.0 - 0.8 02/06/2017 [facility] HEMATOLOGY Eosinophils 0.5 % 0.0 - 4.0 02/06/2017 [facility] HEMATOLOGY Lymphocytes # 2.0 K/CMM 1.0 - 5.5 02/06/2017 [facility] HEMATOLOGY Segs-Bands # 5.5 K/CMM 1.5 - 8.1 02/06/2017 [facility] HEMATOLOGY Basophils 0.2 % 0.0 - 1.0 02/06/2017 [facility] HEMATOLOGY Monocytes 5.6 % 2.0 - 12.0 02/06/2017 [facility] HEMATOLOGY Lymphocytes 24.6 % 20.0 - 40.0 02/06/2017 [facility] HEMATOLOGY Segs 69.1 % 45.0 - 75.0 02/06/2017 [facility] URINE AND STOOL UA Urobilinogen <=1.0 mg/dL 0.1 - 1.0 02/06/2017 [facility] URINE AND STOOL UA Leuk Est Negative (02/05/17 7:57 PM) Negative 02/06/2017 [facility] URINE AND STOOL UA Nitrite Negative (02/05/17 7:57 PM) Negative 02/06/2017 [facility] URINE AND STOOL UA Blood Negative (02/05/17 7:57 PM) Negative 02/06/2017 [facility] URINE AND STOOL UA WBC 1 /HPF 0 - 5 02/06/2017 [facility] URINE AND STOOL UA Sq Epi Occasional /LPF Few /LPF 02/06/2017 [facility] URINE AND STOOL UA Hyal Cast 9 /LPF 0 - 2 02/06/2017 [facility] URINE AND STOOL UA Mucus Few /LPF None Seen /LPF 02/06/2017 [facility] URINE AND STOOL UA Bacteria Occasional /HPF None Seen /HPF 02/06/2017 [facility] URINE AND STOOL UA RBC 4 /HPF 0 - 2 02/06/2017 [facility] URINE AND STOOL UA Glucose Negative mg/dL Negative mg/dL 02/06/2017 [facility] URINE AND STOOL UA Bili Negative *NA* (02/05/17 7:57 PM) Negative 02/06/2017 [facility] URINE AND STOOL UA Ketones Negative mg/dL Negative mg/dL 02/06/2017 [facility] URINE AND STOOL UA pH 5.0 5.0 - 8.0 02/06/2017 [facility] URINE AND STOOL UA Spec Grav 1.012 <=1.030 02/06/2017 [facility] URINE AND STOOL UA Protein Negative mg/dL Negative mg/dL 02/06/2017 [facility] URINE AND STOOL UA Color Yellow *NA* (02/05/17 7:57 PM) Yellow 02/06/2017 [facility] URINE AND STOOL UA Turbidity Clear (02/05/17 7:57 PM) Clear 02/06/2017 [facility] VIRAL - SEROLOGY Influ A Negative (02/05/17 7:57 PM) Negative 02/06/2017 [facility] VIRAL - SEROLOGY Influ B Negative (02/05/17 7:57 PM) Negative 02/06/2017 [facility] Brain wo contrast CT Brain wo contrast CT Addendum: I agree with the above report Brain wo contrast CT 02/05/2017 6:50 PM CDT Ordering Physician: Beth Smith MD CLINICAL HISTORY: vertigo - ct dlp 901.26mgycm; COMPARISON: None TECHNIQUE: Axial images were obtained from the foramen magnum to the vertex without the use of intravenous contrast on a multidetector CT. Coronal and sagittal reformations were created. FINDINGS: INTRACRANIAL VAULT: No acute intracranial hemorrhage or secondary signs of increased intracranial pressure are present. No large territorial ischemic infarction is present. Ventricles, cisterns, and sulci are normal. No intracranial mass or midline shift is present. ORBITS, MASTOIDS AND PARANASAL SINUSES: Visualized orbits are normal. Sinuses and air cells are clear. CALVARIUM: Calvarium is intact. IMPRESSION: No acute abnormality of the brain. SL: [id number] 02/05/2017 - - Read by: Carin aWtters MD Dictated Date/time: 02/05/17 23:07 Electronically Signed by: Carin Watters MD 02/05/17 23:08 FINAL REPORT - - Read by: Bella Boo MD Dictated Date/time: 02/05/17 22:41 Electronically Signed by: Bella Boo MD 02/05/17 22:43 FINAL REPORT [facility] ED Abdomen/Pelvis IV contrast only CT ED Abdomen/Pelvis IV contrast only CT ED Abdomen/Pelvis IV contrast only CT 02/05/2017 6:49 PM CDT Ordering Physician:Beth Smith MD CLINICAL HISTORY: LUQ abd pain dizzy - omni 100cc ct dlp 1973.87mgycm; COMPARISON: None TECHNIQUE: 5 mm thick axial images of the abdomen and pelvis were obtained with IV contrast. . 5 mm thick delayed axial images were obtained. Coronal and sagittal reformations were created. FINDINGS: Visualized lung bases are clear. Liver, spleen, pancreas, adrenal glands, and kidneys are normal. Ureters are normal. Bladder is partially distended. Gallbladder is present. Carl-en-Y gastric bypass changes are noted. Small hiatal hernia is present. Main and gastrointestinal tract is grossly normal. Appendix is normal. No mesenteric or retroperitoneal lymphadenopathy is present. No free air or free fluid is present. Bones demonstrate degenerative disc disease in lower thoracic spine, mild anterior degenerative osteophytosis in the lumbar spine, and L3/L4 and L4/L5 degenerative disc disease with mild posterior broad-based disc protrusions. IMPRESSION: Acrl-en-Y gastric bypass changes. Small hiatal hernia. SL: CHRIS 02/05/2017 - - Read by: Bella Boo MD Dictated Date/time: 02/05/17 22:44 Electronically Signed by: Bella Boo MD 02/05/17 22:51 FINAL REPORT [facility] Chest 1view DX Chest 1view DX Chest 1view DX 02/05/2017 6:49 PM CDT Ordering Physician: Beth Smith MD CLINICAL HISTORY: Chest pain - LUQ thoracoabdominal pain; TECHNIQUE: AP view of the chest were obtained. COMPARISON: 12/04/2016 FINDINGS: Lungs are clear. No pleural effusion of pneumothorax is present. Cardiomediastinal silhouette is normal. Bones are normal. IMPRESSION: No acute abnormality of the chest. SL: CHRIS 02/05/2017 - - Read by: Bella Boo MD Dictated Date/time: 02/05/17 20:00 Electronically Signed by: Bella Boo MD 02/05/17 20:01 FINAL REPORT [facility] 2 views DX Chest 2 views DX EXAM: Chest 2 views DX HISTORY: congestive heart failure COMPARISON: 03/08/2016 The heart size is normal and the lungs are clear. No evidence of edema. There is no pleural effusion or pneumothorax. Mild discogenic degenerative changes are noted. IMPRESSION: No acute abnormality. 12/04/2016 - - Read by: Milton Martin MD Dictated Date/time: 12/04/16 13:56 Electronically Signed by: Milton Martin MD 12/04/16 13:57 FINAL REPORT [facility] CHEM PANEL eGFR 113 mL/min/1.73m2 03/09/2016 Result Comment: The eGFR is calculated using the CKD-EPI formula. In most young, healthy individuals the eGFR will be >90 mL/min/1.73m2. The eGFR declines with age. An eGFR of 60-89 may be normal in some populations, particularly the elderly, for whom the CKD-EPI formula has not been extensively validated. Use of the eGFR is not recommended in the following populations: Individuals with unstable creatinine concentrations, including patients and those with serious co-morbid conditions. Patients with extremes in muscle mass or diet. The data above are obtained from the National Kidney Disease Education Program (NKDEP) which additionally recommends that when the eGFR is used in patients with extremes of body mass index for purposes of drug dosing, the eGFR should be multiplied by the estimated BMI. [facility] CHEM PANEL AGAP 10.2 meq/L 10.0 - 20.0 03/09/2016 [facility] CHEM PANEL Sodium Lvl 141 meq/L 135 - 145 03/09/2016 [facility] CHEM PANEL Calcium Lvl 7.8 mg/dL 8.5 - 10.5 03/09/2016 [facility] CHEM PANEL CO2 28 meq/L 24 - 32 03/09/2016 [facility] CHEM PANEL Glucose Lvl 143 mg/dL 70 - 99 03/09/2016 [facility] CHEM PANEL Creatinine Lvl 0.59 mg/dL 0.50 - 1.40 03/09/2016 [facility] CHEM PANEL BUN 10 mg/dL 7 - 22 03/09/2016 [facility] CHEM PANEL Chloride Lvl 106 meq/L 95 - 109 03/09/2016 [facility] CHEM PANEL Potassium Lvl 3.2 meq/L 3.5 - 5.1 03/09/2016 [facility] HEMATOLOGY Eosinophils # 0.1 K/CMM 0.0 - 0.5 03/09/2016 [facility] HEMATOLOGY Monocytes # 0.8 K/CMM 0.0 - 0.8 03/09/2016 [facility] HEMATOLOGY Lymphocytes # 1.8 K/CMM 1.0 - 5.5 03/09/2016 [facility] HEMATOLOGY Eosinophils 1.5 % 0.0 - 4.0 03/09/2016 [facility] HEMATOLOGY Basophils 0.2 % 0.0 - 1.0 03/09/2016 [facility] HEMATOLOGY Segs-Bands # 6.6 K/CMM 1.5 - 8.1 03/09/2016 [facility] HEMATOLOGY Monocytes 8.4 % 2.0 - 12.0 03/09/2016 [facility] HEMATOLOGY Lymphocytes 19.5 % 20.0 - 40.0 03/09/2016 [facility] HEMATOLOGY Segs 70.4 % 45.0 - 75.0 03/09/2016 [facility] HEMATOLOGY MCV 83.0 fL 80.0 - 98.0 03/09/2016 [facility] Hgb 12.1 g/dL 12.0 - 16.0 03/09/2016 [facility] MCH 28.1 pg 27.0 - 31.0 03/09/2016 [facility] MCHC 33.8 g/dL 32.0 - 36.0 03/09/2016 [facility] WBC 9.3 K/CMM 3.7 - 10.4 03/09/2016 [facility] RBC 4.32 M/CMM 4.20 - 5.40 03/09/2016 [facility] Hct 35.9 % 36.0 - 48.0 03/09/2016 [facility] Platelet 147 K/CMM 133 - 450 03/09/2016 [facility] RDW 16.2 % 11.5 - 14.5 03/09/2016 [facility] MPV 8.9 fL 7.4 - 10.4 03/09/2016 [facility] URINE AND STOOL UA Bacteria Occasional /HPF None Seen /HPF 03/08/2016 [facility] URINE AND STOOL UA WBC 2 /HPF 0 - 5 03/08/2016 [facility] URINE AND STOOL UA Turbidity Slight *ABN* (03/08/16 6:22 PM) Clear 03/08/2016 [facility] URINE AND STOOL UA Protein 30 mg/dL Negative mg/dL 03/08/2016 [facility] URINE AND STOOL UA Blood Negative (03/08/16 6:22 PM) Negative 03/08/2016 [facility] URINE AND STOOL UA Bili Negative *NA* (03/08/16 6:22 PM) Negative 03/08/2016 [facility] URINE AND STOOL UA Color Yellow *NA* (03/08/16 6:22 PM) Yellow 03/08/2016 [facility] URINE AND STOOL UA pH 6.0 5.0 - 8.0 03/08/2016 [facility] URINE AND STOOL UA Spec Grav 1.023 <=1.030 03/08/2016 [facility] URINE AND STOOL UA Leuk Est Trace *ABN* (03/08/16 6:22 PM) Negative 03/08/2016 [facility] URINE AND STOOL UA Mucus Few /LPF None Seen /LPF 03/08/2016 [facility] URINE AND STOOL UA Ketones 80 mg/dL Negative mg/dL 03/08/2016 [facility] URINE AND STOOL UA Glucose 50 mg/dL Negative mg/dL 03/08/2016 [facility] URINE AND STOOL UA Urobilinogen 2.0 mg/dL 0.1 - 1.0 03/08/2016 [facility] URINE AND STOOL UA Sq Epi Few /LPF Few /LPF 03/08/2016 [facility] URINE AND STOOL UA Nitrite Negative (03/08/16 6:22 PM) Negative 03/08/2016 [facility] CARDIAC ENZYMES CK MB Index null 0.0 - 2.5 03/08/2016 [facility] CARDIAC ENZYMES CK MB null 0.5 - 3.6 03/08/2016 [facility] CARDIAC ENZYMES Troponin-I null 0.00 - 0.40 03/08/2016 [facility] CARDIAC ENZYMES Total CK 47 unit/L 12 - 191 03/08/2016 [facility] CHEM PANEL Ketone Quantitative 2.32 mmol/L <=0.27 mmol/L 03/08/2016 [facility] CHEM PANEL Lipase Lvl 251 unit/L 73 - 393 03/08/2016 [facility] CHEM PANEL Amylase Lvl 90 unit/L 25 - 115 03/08/2016 [facility] ELECTROLYTES AGAP 14.3 meq/L 10.0 - 20.0 03/08/2016 [facility] ELECTROLYTES B/C Ratio 18 6 - 25 03/08/2016 [facility] ELECTROLYTES Globulin 4.2 g/dL 2.0 - 4.0 03/08/2016 [facility] ELECTROLYTES A/G Ratio 0.8 0.7 - 1.6 03/08/2016 [facility] ELECTROLYTES Total Protein 7.7 g/dL 6.4 - 8.4 03/08/2016 [facility] ELECTROLYTES Calcium Lvl 8.9 mg/dL 8.5 - 10.5 03/08/2016 [facility] ELECTROLYTES eGFR 74 mL/min/1.73m2 03/08/2016 Result Comment: The eGFR is calculated using the CKD-EPI formula. In most young, healthy individuals the eGFR will be >90 mL/min/1.73m2. The eGFR declines with age. An eGFR of 60-89 may be normal in some populations, particularly the elderly, for whom the CKD-EPI formula has not been extensively validated. Use of the eGFR is not recommended in the following populations: Individuals with unstable creatinine concentrations, including patients and those with serious co-morbid conditions. Patients with extremes in muscle mass or diet. The data above are obtained from the National Kidney Disease Education Program (NKDEP) which additionally recommends that when the eGFR is used in patients with extremes of body mass index for purposes of drug dosing, the eGFR should be multiplied by the estimated BMI. [facility] ELECTROLYTES Bili Total 0.6 mg/dL 0.2 - 1.3 03/08/2016 [facility] ELECTROLYTES Albumin Lvl 3.5 g/dL 3.5 - 5.0 03/08/2016 [facility] ELECTROLYTES ALT 17 unit/L 0 - 65 03/08/2016 [facility] ELECTROLYTES AST 20 unit/L 0 - 37 03/08/2016 [facility] ELECTROLYTES Alk Phos 72 unit/L 39 - 136 03/08/2016 [facility] ELECTROLYTES Sodium Lvl 136 meq/L 135 - 145 03/08/2016 [facility] ELECTROLYTES BUN 17 mg/dL 7 - 22 03/08/2016 [facility] ELECTROLYTES Creatinine Lvl 0.95 mg/dL 0.50 - 1.40 03/08/2016 [facility] ELECTROLYTES Glucose Lvl 184 mg/dL 70 - 99 03/08/2016 [facility] ELECTROLYTES Potassium Lvl 3.3 meq/L 3.5 - 5.1 03/08/2016 [facility] ELECTROLYTES Chloride Lvl 99 meq/L 95 - 109 03/08/2016 [facility] ELECTROLYTES CO2 26 meq/L 24 - 32 03/08/2016 [facility] ENDOCRINOLOGY S Preg Negative *NA* (03/08/16 12:30 PM) Negative 03/08/2016 [facility] HEMATOLOGY Basophils 0.1 % 0.0 - 1.0 03/08/2016 [facility] HEMATOLOGY Segs-Bands # 9.6 K/CMM 1.5 - 8.1 03/08/2016 [facility] HEMATOLOGY Lymphocytes # 3.0 K/CMM 1.0 - 5.5 03/08/2016 [facility] Monocytes # 0.8 K/CMM 0.0 - 0.8 03/08/2016 [facility] Plt Morph Clumped 1 (03/08/16 12:30 PM) 03/08/2016 Result Comment: platelets clump- suggesting ordering platelet count on a blue top tube 03/08/2016 13:53 tdh [facility] Segs 71.2 % 45.0 - 75.0 03/08/2016 [facility] Lymphocytes 22.2 % 20.0 - 40.0 03/08/2016 [facility] Monocytes 6.2 % 2.0 - 12.0 03/08/2016 [facility] RBC Morph Normal (03/08/16 12:30 PM) 03/08/2016 [facility] Eosinophils 0.3 % 0.0 - 4.0 03/08/2016 [facility] Platelet See Note (03/08/16 12:30 PM) 133 - 450 03/08/2016 [facility] WBC 13.5 K/CMM 3.7 - 10.4 03/08/2016 [facility] RBC 4.86 M/CMM 4.20 - 5.40 03/08/2016 [facility] MPV 8.8 fL 7.4 - 10.4 03/08/2016 [facility] MCV 82.9 fL 80.0 - 98.0 03/08/2016 [facility] MCH 27.7 pg 27.0 - 31.0 03/08/2016 [facility] MCHC 33.4 g/dL 32.0 - 36.0 03/08/2016 [facility] RDW 16.1 % 11.5 - 14.5 03/08/2016 [facility] Hgb 13.4 g/dL 12.0 - 16.0 03/08/2016 [facility] Hct 40.3 % 36.0 - 48.0 03/08/2016 [facility] Brain wo contrast CT Brain wo contrast CT Brain wo contrast CT 03/08/2016 3:58 PM CDT Ordering Physician: Jayla Robbins DO CLINICAL HISTORY: Vertigo; nausea and vomiting COMPARISON: None TECHNIQUE: Axial images were obtained from the foramen magnum to the vertex without the use of intravenous contrast on a multidetector CT. Coronal and sagittal reformations were created. FINDINGS: INTRACRANIAL VAULT: No acute intracranial hemorrhage or secondary signs of increased intracranial pressure are present. No large territorial ischemic infarction is present. Ventricles, cisterns, and sulci are normal. No intracranial mass or midline shift is present. ORBITS, MASTOIDS AND PARANASAL SINUSES: Visualized orbits are normal. Sinuses and air cells are clear. CALVARIUM: Calvarium is intact. IMPRESSION: No acute abnormality of the brain. SL: [id number] 03/08/2016 - - Read by: Bella Boo MD Dictated Date/time: 03/08/16 16:46 Electronically Signed by: Bella Boo MD 03/08/16 16:47 FINAL REPORT [facility] Chest 1view DX Chest 1view DX CHEST, 1 VIEW HISTORY: Coughing; chest pain COMPARISON: None available. FINDINGS: The lungs are clear. No pleural effusion or pneumothorax. Heart size normal. No acute osseous abnormality. SL: [id number] 03/08/2016 - - Read by: Amado Pickard MD Dictated Date/time: 03/08/16 15:12 Electronically Signed by: Amado Pickard MD 03/08/16 15:12 FINAL REPORT [facility] Shoulder wo contrast MRI Shoulder wo contrast MRI EXAMINATION: MR left shoulder without contrast HISTORY: Left shoulder pain; rotator cuff tear FINDINGS: There are no radiographs available for review. Multiplanar, multisequence magnetic resonance imaging of the left shoulder is performed with a local coil. Transverse, oblique coronal, and oblique sagittal images are obtained. Biceps: There is medial subluxation of the biceps tendon from the bicipital groove within an interstitial tear of the superior fibers of the distal subscapularis tendon. The long head of the biceps tendon remains attached at the superior bicipital labral complex. Labrum: There is minimal irregularity of the posterosuperior labrum without discrete tear. There is a tear of the posteroinferior glenoid labrum with subjacent subchondral cyst formation and subchondral sclerosis of the posteroinferior glenoid. There is an anterosuperior sublabral foramen versus anterosuperior labral tear. Rotator cuff tendons: There is a full-thickness tear involving the entire footprint of the supraspinatus tendon measuring 2.1 cm in anteroposterior dimension with a partial-thickness interstitial delaminating component extending along the infraspinatus myotendinous junction. There is retraction of the torn tendinopathic distal tendon fibers by approximately 1.2 cm and retraction of the supraspinatus myotendinous junction to the level of the glenohumeral joint. There is underlying supraspinatus and infraspinatus tendinopathy. The teres minor tendon is intact. There is an interstitial tear of the superior fibers of the distal subscapularis tendon with underlying subscapularis tendinopathy (series 6, images 11 through 13). Acromio-osseous outlet: There is a type II acromion without a subacromial spur. The coracoacromial and coracoclavicular ligaments are intact. Muscles: There is decreased muscle bulk of the supraspinatus muscle without fatty atrophy. There is mild fatty infiltration of the infraspinatus and teres minor muscles. Cartilage: There is minimal degenerative arthrosis of acromioclavicular joint. There is subchondral cyst formation and subchondral sclerosis along the posteroinferior glenoid with overlying chondrosis. The glenohumeral articular cartilage is otherwise normal. Bone: Again, there is subchondral cyst formation and subchondral sclerosis along the posteroinferior glenoid. There is no fracture. Soft tissue: There is a moderate-sized glenohumeral joint effusion which freely communicates with the subacromial subdeltoid bursa through the full-thickness rotator cuff tear. IMPRESSION: 1. Full-thickness tear involving the entire footprint of the left supraspinatus tendon measuring 2.1 cm in anteroposterior dimension with a partial thickness, interstitial delaminating component extending along the infraspinatus myotendinous junction. There is retraction of the torn tendinopathic distal tendon fibers by approximately 1.2 cm and retraction of the supraspinatus myotendinous junction to the level of the glenohumeral joint with underlying supraspinatus and infraspinatus tendinopathy. 2. Interstitial tear of the superior fibers of the distal left subscapularis tendon with underlying subscapularis tendinopathy. 3. Decreased muscle bulk of the left supraspinatus muscle without fatty atrophy; however, there is mild fatty infiltration of the left infraspinatus and teres minor muscles. 4. Medial subluxation of the biceps tendon from the bicipital groove within the interstitial tear of the superior fibers of the subscapularis tendon. The long head of the biceps tendon remains attached at the superior bicipital labral complex. 5. Tear of the posteroinferior left glenoid labrum with subjacent subchondral cyst formation and subchondral sclerosis of the posteroinferior glenoid with overlying posteroinferior glenoid chondrosis. There is also minimal irregularity of the posterosuperior left glenoid labrum without discrete tear and there is an anterosuperior sublabral foramen versus anterosuperior labral tear. 6. Minimal left acromioclavicular degenerative arthrosis. 7. Moderate-sized left glenohumeral joint effusion which freely communicates with the subacromial subdeltoid bursa through the full-thickness rotator cuff tear. 08/20/2015 - - Read by: Sourav Henderson MD Dictated Date/time: 08/20/15 13:26 Electronically Signed by: Sourav Henderson MD 08/20/15 13:44 FINAL REPORT YOLI Mishra Ankle 3 views DX Ankle 3 views DX EXAM: XR LEFT ANKLE 3 VIEWS DATE: 2015-03-06 10:41:00 INDICATION: Pain and swelling COMPARISON: None available TECHNIQUE: AP, lateral and oblique radiographs of the left ankle DISCUSSION: No acute fracture or malalignment is identified. There is a bony fragment off of the medial malleolus which likely represents an old healed fracture. Additionally, there appear to be old healed fractures of the posterior malleolus and fibular diaphysis. There is marginal osteophytosis noted throughout the ankle joint. The ankle mortise is congruent. There is minimal soft tissue swelling around the ankle. Calcaneal enthesophytes are noted. There are diffuse atherosclerotic calcifications. IMPRESSION: Mild osteoarthrosis of the left ankle, possibly post-traumatic in origin. Minimal soft tissue swelling. Old healed fractures of the medial malleolus, posterior malleolus, and fibular diaphysis. 03/06/2015 - - This report was dictated by a Public Health Teacher/Fellow. I have personally reviewed the images as well as the Resident's interpretation and agree with the findings. Read by: Kathi Lance MD Resident: Kathi Lance MD Dictated Date/time: 03/06/15 10:59 Electronically Signed by: Rick Heath MD 03/06/15 11:53 FINAL REPORT [facility] Spine lumbar wo contrast MRI Spine lumbar wo contrast MRI EXAM: MRI LUMBAR DATE: Mar 06, 2015 06:49:00 AM INDICATION: Trauma TECHNIQUE: Sagittal T1, sagittal T2, sagittal STIR, axial T1, and axial T2- weighted images of the lumbar spine are obtained without contrast. FINDINGS: Mild motion degradation is present producing image quality but the examination remains of diagnostic utility. Five nonrib-bearing lumbar type vertebra are present. The first sacral segment is a transitional segment and partially lumbarized on the right with a pseudoarticulation with the remainder of the sacrum being present on the left, a developmental variant. For the purposes of this report, the lowest fully formed and normal height intervertebral disc is labeled as L5-S1 the disc between the transitional segment and the remainder of the sacrum is of lower than normal height. The conus medullaris terminates at the mid L2 level. It has a normal contour and normal signal characteristics. No intradural pathology is identified. Alignment is normal. Vertebral height and signal characteristics are unremarkable. No fracture is detected with this modality. Intervertebral disc height and normal a intervertebral disc height and signal are normal at L1-L2 and L2-L3 as well as L5-S1. L2-L3: Facet degenerative changes are noted causing slight deformity of the dorsal thecal sac. No focal disc pathology. L3-L4: A bulge of the posterior disc annulus is present. The ligamenta flava are redundant. Facet osteoarthritis is also present. In combination, these cause minimal narrowing of the canal without foraminal encroachment. L4-L5: A bulge of the posterior disc annulus is present. No spinal stenosis results. Minimal facet osteoarthritis does not cause further canal encroachment. There is slight encroachment on the foramina by the bulging disc. L5-S1: Normal. There is no evidence of significant spinal canal or neural foraminal stenosis. The paraspinous and presacral soft tissues are unremarkable. IMPRESSION: 1. No fracture or subluxation. No focal disc pathology. 2. Minimal spinal stenosis at L3-L4, multifactorial. 3. Multilevel early facet degenerative changes. 4. Partial transitional first sacral segment. This can be a source of chronic low back pain. 03/06/2015 - - Read by: Mor Mcmahon MD Dictated Date/time: 03/06/15 07:49 Electronically Signed by: Mor Mcmahon MD 03/06/15 10:02 FINAL REPORT [facility] Shoulder wo contrast MRI Shoulder wo contrast MRI EXAMINATION: MR right shoulder without contrast HISTORY: Right shoulder pain; rotator cuff disease FINDINGS: There are no radiographs available for review. Multiplanar, multisequence magnetic resonance imaging of the right shoulder is performed with a local coil. Transverse, oblique coronal, and oblique sagittal images are obtained. The examination is mildly limited due to the patient's body habitus with resultant decreased sxobwd-ho-slhem ratio. There is a type II acromion without a subacromial spur. The coracoacromial ligament is intact. There is mild degenerative arthrosis of the acromioclavicular joint. There is a small amount of fluid in the subacromial- subdeltoid bursa. There is normal signal intensity and muscle bulk of the rotator cuff musculature. There is a high-grade partial-thickness, bursal sided rim rent tear of the supraspinatus tendon measuring approximately 8 mm in anteroposterior dimension and involving a maximum of 80% of the tendon thickness. There is no substantial tendinous retraction. There is moderate infraspinatus tendinopathy without tear. The teres minor and subscapularis tendons are normal. The long head of biceps remains attached at the superior bicipital labral complex without dislocation or subluxation. The posterior labrum is not well visualized due to poor itpbor-de-lxkeg ratio; however, the remainder of the glenoid labrum appears intact on this nonarthrographic examination. There is extensive subchondral cyst formation within the posterior and posteroinferior glenoid with likely overlying chondrosis. A physiologic amount of fluid is present in the glenohumeral joint. There is otherwise normal marrow signal intensity within the bones of the shoulder girdle. IMPRESSION: 1. High-grade partial-thickness, bursal sided rim rent tear at the right supraspinatus tendon measuring approximately 8 mm in anteroposterior dimension and involving a maximum of 80% of the tendon thickness. There is no substantial tendinous retraction or supraspinatus atrophy. 2. Moderate right infraspinatus tendinopathy without tear. 3. Posterior right glenoid labrum not well visualized due to poor hbzihp-cr-fzhjw ratio; however, the remainder of the glenoid labrum appears intact on this nonarthrographic examination. There is extensive subchondral cyst formation within the posterior and posteroinferior glenoid with likely overlying chondrosis. 4. Mild right acromioclavicular degenerative arthrosis. 5. Small amount of fluid within the right subacromial subdeltoid bursa likely representing mild subacromial subdeltoid bursitis. 11/01/2014 - - Read by: Sourav Henderson MD Dictated Date/time: 11/01/14 10:38 Electronically Signed by: Sourav Henderson MD 11/01/14 10:47 FINAL REPORT [facility] Mish[facility] Hand wo contrast MRI Hand wo contrast MRI EXAMINATION: MRI of the right hand without contrast HISTORY: Right hand pain and swelling; Right arm radiculopathy; History of carpal tunnel release FINDINGS: There are no radiographs available for review. Multiplanar, multisequence magnetic resonance imaging of the right hand is performed with an extremity coil without intravenous contrast. There is normal bone marrow signal intensity throughout the visualized hand and wrist. Specifically, there is no evidence of fracture, stress fracture, osteonecrosis, or osteomyelitis. Postsurgical changes of carpal tunnel release are demonstrated. The ulnar and median nerves demonstrate normal signal and morphology. Guyon's canal is normal. The soft tissues including intrinsic musculature of the hand, neurovascular bundles, and tendons of the hand appear normal. Specifically, there is no evidence of subacute or chronic denervation of the intrinsic hand musculature. The joint spaces appear normal without chondrosis or subchondral marrow edema. The first, second, third, fourth, fifth, and sixth extensor tendon compartments are normal. The tendons demonstrate normal signal and morphology. The flexor tendons are normal in signal and morphology. No evidence of tendon rupture or inflammation. There is a small effusion within the distal radioulnar joint. IMPRESSION: 1. Postsurgical changes of right carpal tunnel release with normal signal and morphology of the median nerve. 2. Normal bone marrow signal intensity throughout the visualized right hand and wrist, as well as, no evidence of subacute or chronic denervation of the intrinsic hand musculature. 3. Small effusion within the distal radioulnar joint. 08/22/2014 - - Read by: Sourav Henderson MD Dictated Date/time: 08/22/14 16:46 Electronically Signed by: Sourav Henderson MD 08/22/14 17:12 FINAL REPORT JUVENCIO Mishra Abdomen w/wo IV contrast CT Abdomen w/wo IV contrast CT Exam: CT Scan of the abdomen with and without contrast Reason for Exam: Anomalies of the kidneys. Left upper quadrant abdominal pain. Nausea. Comparison Exam: Gallbladder ultrasound 12/14/2013 Technique: Multiple axial images were obtained of the abdomen. 2.5 and 5 mm slices were acquired before and after injection of 100 cc Omnipaque 300 IV. 50 cc Omnipaque 300 was also given as oral contrast. Reformatted sagittal and coronal images were obtained. Total exam CGT=0759 mGy-cm. Discussion: Visualized portions of the lung bases are clear. The liver and gallbladder are unremarkable. No biliary duct dilation. Portal venous system is patent. Pancreas, spleen, and adrenal glands are within normal limits. No calcified stones are seen within the kidneys. No focal enhancing masses seen within the kidneys. No hydronephrosis or hydroureter. No dilated loops of bowel. No appreciable lymphadenopathy or free fluid. No acute bony abnormalities appreciated. No suspicious osteoblastic or osteolytic lesions. No evidence seen for abdominal aortic aneurysm or dissection. Impression: 1. Kidneys are unremarkable in appearance. 12/23/2013 - - Read by: aDmian Valdez Dictated Date/time: 12/23/13 16:58 Electronically Signed by: Damian Valdez MD 12/23/13 17:04 FINAL REPORT JUVENCIO Mishra Gall Bladder US Gall Bladder US GALLBLADDER ULTRASOUND CLINICAL HISTORY: Abdominal pain. 789.06 COMPARISON IMAGING: None. FINDINGS: Examination limited secondary to overlying bowel gas pattern and body habitus. Liver: Echogenicity suggests fatty infiltration and/or chronic hepatocellular disease. No suspicious lesion or surface nodularity. Portal vein is patent with hepatopedal flow. Biliary: No gallstones, gallbladder wall thickening, or sonographic Dawn's sign. There is no biliary duct dilation. Mid common bile duct measures 4 mm in diameter. Pancreas: Obscured by bowel gas and unable to be evaluated. Right kidney: Measures 12.6 cm in length (normal: 9-12 cm). No hydronephrosis, suspicious renal mass, or large shadowing stone. Vascular: Visualized portions of the IVC are patent. No obvious aneurysmal dilatation of the aorta. IMPRESSION: 1. Limited examination secondary to overlying bowel gas pattern and body habitus. 2. Hepatic echogenicity suggestive of fatty infiltration and/or chronic hepatocellular disease. 12/14/2013 - - Read by: Wanda Head Dictated Date/time: 12/14/13 11:53 Electronically Signed by: Wanda Head , DO 12/14/13 11:54 FINAL REPORT Y[facility] Mishra Vital Signs Vital Sign Value Date Comments Source Heart Rate 64 09/16/2017 [facility] Respitory Rate 20 09/16/2017 [facility] Systolic (mm Hg) 126 09/16/2017 [facility] Diastolic (mm Hg) 76 09/16/2017 [facility] Temperature Oral (F) 98.0 F 09/16/2017 [facility] Systolic (mm Hg) 126 09/16/2017 [facility] Diastolic (mm Hg) 89 09/16/2017 [facility] Temperature Oral (F) 98.1 F 09/16/2017 [facility] Respitory Rate 20 09/16/2017 [facility] Systolic (mm Hg) 119 09/16/2017 [facility] Diastolic (mm Hg) 80 09/16/2017 [facility] Heart Rate 53 09/16/2017 [facility] Respitory Rate 18 09/16/2017 [facility] Heart Rate 53 09/16/2017 [facility] BMI Calculated 26.69 09/15/2017 [facility] Weight 75 09/15/2017 [facility] Height 167.64 cm 09/15/2017 [facility] Temperature Oral (F) 99.6 F 09/15/2017 [facility] Temperature Oral (F) 98.0 F 02/06/2017 [facility] Systolic (mm Hg) 120 02/06/2017 [facility] Diastolic (mm Hg) 76 02/06/2017 [facility] Respitory Rate 12 02/06/2017 [facility] Respitory Rate 15 02/06/2017 [facility] Systolic (mm Hg) 112 02/06/2017 [facility] Diastolic (mm Hg) 71 02/06/2017 [facility] Respitory Rate 15 02/06/2017 [facility] Temperature Oral (F) 98.3 F 02/06/2017 [facility] Systolic (mm Hg) 117 02/06/2017 [facility] Diastolic (mm Hg) 73 02/06/2017 [facility] Temperature Oral (F) 98.3 F 02/06/2017 [facility] Heart Rate 73 02/05/2017 [facility] Heart Rate 90 02/05/2017 [facility] Height 167.64 cm 02/05/2017 [facility] BMI Calculated 25.88 02/05/2017 [facility] Weight 72.727 02/05/2017 [facility] Temperature Oral (F) 98.5 F 03/09/2016 [facility] Heart Rate 71 03/09/2016 [facility] Respitory Rate 16 03/09/2016 [facility] Systolic (mm Hg) 110 03/09/2016 [facility] Diastolic (mm Hg) 72 03/09/2016 [facility] Temperature Oral (F) 98 F 03/09/2016 [facility] Heart Rate 76 03/09/2016 [facility] Systolic (mm Hg) 129 03/09/2016 [facility] Diastolic (mm Hg) 78 03/09/2016 [facility] Respitory Rate 17 03/09/2016 [facility] Respitory Rate 18 03/09/2016 [facility] Heart Rate 68 03/09/2016 [facility] Temperature Oral (F) 98.6 F 03/09/2016 [facility] Systolic (mm Hg) 100 03/09/2016 [facility] Diastolic (mm Hg) 66 03/09/2016 [facility] Weight 100.9 03/08/2016 [facility] BMI Calculated 35.92 03/08/2016 [facility] Height 167.6 cm 03/08/2016 [facility] Weight 100.909 03/08/2016 [facility] Height 167.64 cm 03/08/2016 [facility] BMI Calculated 35.91 03/08/2016 [facility] Temperature Oral (F) 98.5 F 03/06/2015 [facility] Systolic (mm Hg) 142 03/06/2015 [facility] Diastolic (mm Hg) 78 03/06/2015 [facility] Heart Rate 80 03/06/2015 [facility] Respitory Rate 18 03/06/2015 [facility] Respitory Rate 18 03/06/2015 [facility] Systolic (mm Hg) 166 03/06/2015 [facility] Diastolic (mm Hg) 98 03/06/2015 [facility] Respitory Rate 18 03/06/2015 [facility] Systolic (mm Hg) 148 03/06/2015 [facility] Diastolic (mm Hg) 81 03/06/2015 [facility] Heart Rate 86 03/06/2015 [facility] Height 167.64 cm 03/06/2015 [facility] BMI Calculated 42.05 03/06/2015 [facility] Weight 118.182 03/06/2015 [facility] Heart Rate 85 03/06/2015 [facility] Temperature Oral (F) 97.8 F 03/06/2015 [facility] Encounters Location Location Details Encounter Type Encounter Number Reason For Visit Attending Provider ADM Date DC Date Status Source OD [id number] 789.06 - ABDMNAL PAIN EP SELENA GILL 12/14/2013 Active [facility] [place] [facility] [place] [facility] [id number] Selena Jeremy 08/22/2014 08/23/2014 [facility] [place] [facility] [place] [facility] [id number] Kwame Estevez 11/01/2014 11/02/2014 [facility] [id number] Ro Medranoson 03/06/2015 03/06/2015 [facility] [place] [facility] [id number] Selena John 08/20/2015 08/21/2015 [facility] OBS Observation Patient [id number] Marek Stewartstarla 03/08/2016 03/09/2016 [facility] [place] [facility] [id number] Maxim Swan 12/04/2016 12/05/2016 [facility] Emergency [id number] Beth Smith 02/05/2017 02/06/2017 [facility] Emergency [id number] Jeremy Madden 09/15/2017 09/16/2017 [facility] [place] [facility] [id number] Selena Gill 10/13/2017 10/14/2017 [facility] Outpatient [id number] Selena Gill 10/22/2017 10/23/2017 [facility] [place] OP Therapy Patients [id number] Vanesa Levine 12/25/2017 01/24/2018 [facility] [place] [facility] Phone Message [id number] 02/03/2018 02/05/2018 [facility] Phone Message [id number] 02/11/2018 02/13/2018 [facility] [place] [id number] Selena Gill 02/12/2018 02/12/2018 [facility] Procedures Procedure Code Date Perfomer Comments Source Gastric bypass<sup>1</sup> [id number] dec 172015 [facility] Lumpectomy of breast [id number] [facility] Partial hysterectomy [id number] [facility] Carpal tunnel release [id number] [facility] Gastric bypass<sup>1</sup> 380151509 dec 172015 [facility] Hysterectomy [id number] [facility] Lumpectomy of breast [id number] [facility] Partial hysterectomy 416795019 [facility] Gastric bypass<sup>1</sup> 633005379 dec 172015 [facility] [place] Lumpectomy of breast [id number] [facility] [place] Partial hysterectomy [id number] [facility] [place] Carpal tunnel release [id number] [facility] [place] Gastric bypass<sup>1</sup> 063851972 dec 17. 2015 [facility] [place] Hysterectomy [id number] [facility] [place] Lumpectomy of breast [id number] [facility] [place] Partial hysterectomy [id number] [facility] [place] Gastric bypass<sup>1</sup> 146030397 dec 172015 [facility] [place] Partial hysterectomy [id number] [facility] [place] Carpal tunnel release [id number] [facility] [place] Hysterectomy [id number] [facility] [place] Carpal tunnel release [id number] [facility] Hysterectomy [id number] [facility]
--- OUTSIDE RECORDS SUMMARY | 2018-10-30 11:35 | XMS REPORT | Summary of Care ---
Author Author [facility] Address Unknown Phone Unavailable Encounter [facility] Rosana(FIN) [id number] Date(s): 12/25/17 - 01/23/18 [facility] Encounter Diagnosis Pain in right foot (Final) - 01/29/18 Stiffness of right foot, not elsewhere classified (Final) - Difficulty in walking, not elsewhere classified (Final) - Muscle wasting and atrophy, not elsewhere classified, unspecified site (Final) - Other hammer toe(s) (acquired), right foot (Final) - Discharge Disposition: Home or Self Care Attending Physician: Vanesa Levine DPRoxanne Vital Signs No data available for this section Problem List Condition Effective Dates Status Health Status Informant Apnea, Resolved sleep(Confirmed) Depression(Confirmed Resolved ) Diabetes(Confirmed) Resolved Diabetes(Confirmed) Resolved HDL - High density Resolved lipoprotein cholesterol(Confirme d) HTN Resolved (hypertension)(Confi rmed) HTN Resolved (hypertension)(Confi rmed) Depression with Resolved anxiety(Confirmed) Suicidal Resolved ideations(Confirmed) Allergies, Adverse Reactions, Alerts Substance Reaction Severity Status Lyrica Active NKDA Active Medications No data available for this section Results No data available for this section Immunizations No data available for this section Procedures Procedure Date Related Diagnosis Body Site Status Carpal tunnel release Completed Gastric bypass1 Completed Hysterectomy Completed Lumpectomy of breast Completed Partial hysterectomy Completed 2015 Social History Social History Type Response Substance Abuse Use: None. Alcohol Current, Frequency: 1-2 times per month. Smoking Status Current some day smoker; Type: Cigarettes; Previous treatment: None; Ready to change: No; Concerns about tobacco use in household: No; Exposure to Tobacco Smoke None; Cigarette Smoking Last 365 Days Yes; Reg Smoking Cessation Counseling No entered on: 09/15/17 Assessment and Plan No data available for this section
--- OUTSIDE RECORDS SUMMARY | 2018-10-30 11:35 | XMS REPORT | Summary of Care ---
Author Author [facility] Organization [facility] Address Unknown Phone Unavailable Encounter HQ Jayder_juan carlos(FIN) [id number] Date(s): 10/22/17 - 10/22/17 [facility] [address] [place] [address]- Discharge Disposition: Home or Self Care Attending Physician: Justice Luna MD Referring Physician: Justice Luna MD Vital Signs No data available for this section Problem List Condition Effective Dates Status Health Status Informant Apnea, Resolved sleep(Confirmed) Diabetes(Confirmed) Resolved HDL - High density Resolved lipoprotein cholesterol(Confirme d) HTN Resolved (hypertension)(Confi rmed) Depression with Resolved anxiety(Confirmed) Suicidal Resolved ideations(Confirmed) Allergies, Adverse Reactions, Alerts Substance Reaction Severity Status Lyrica Active Medications No data available for this section Results No data available for this section Immunizations No data available for this section Procedures Procedure Date Related Diagnosis Body Site Gastric bypass1 Lumpectomy of breast Partial hysterectomy 2015 Social History Social History Type Response Substance Abuse Use: None. Alcohol Current, Frequency: 1-2 times per month. Smoking Status Current some day smoker; Type: Cigarettes; Previous treatment: None; Ready to change: No; Concerns about tobacco use in household: No; Exposure to Tobacco Smoke None; Cigarette Smoking Last 365 Days Yes; Reg Smoking Cessation Counseling No Assessment and Plan No data available for this section
--- OUTSIDE RECORDS SUMMARY | 2018-10-30 11:35 | XMS REPORT | Summary of Care ---
Author Author [facility] Organization [facility] Address Unknown Phone Unavailable Encounter PADMINI Wayne(JAKE) [id number] Date(s): 09/15/17 - 09/16/17 [facility] [address] [place] [address]- Discharge Disposition: DC/TF To Psych Hosp Attending Physician: Jeremy Madden MD Vital Signs 1 2 3 Most recent to oldest [Reference Range]: 167.64 cm (09/15/17 2:34 PM) Height 98.0 DegF (09/16/17 9:16 AM) 98.1 DegF (09/16/17 8:20 AM) 99.6 DegF *HI* (09/15/17 2:34 PM) Temperature Oral [96.4-99.1 DegF] 126/76 mmHg (09/16/17 9:16 AM) 126/89 mmHg (09/16/17 8:20 AM) 119/80 mmHg (09/16/17 7:22 AM) Blood Pressure [90-140/60-90 mmHg] 20 BRMIN (09/16/17 9:16 AM) 20 BRMIN (09/16/17 8:20 AM) 18 BRMIN (09/16/17 7:22 AM) Respiratory Rate [14-20 BRMIN] 64 bpm (09/16/17 9:16 AM) 53 bpm *LOW* (09/16/17 7:22 AM) 53 bpm *LOW* (09/16/17 6:30 AM) Peripheral Pulse Rate [60-100 bpm] 75 kg (09/15/17 2:34 PM) Weight 26.69 m2 (09/15/17 2:34 PM) Body Mass Index Problem List Condition Effective Dates Status Health Status Informant Apnea, Resolved sleep(Confirmed) Diabetes(Confirmed) Resolved HDL - High density Resolved lipoprotein cholesterol(Confirme d) HTN Resolved (hypertension)(Confi rmed) Depression with Resolved anxiety(Confirmed) Suicidal Resolved ideations(Confirmed) Allergies, Adverse Reactions, Alerts Substance Reaction Severity Status Lyrica Active Medications Ativan 1 mg, 0.5 mL, Route: IVP, Drug form: INJ, ONCE, Dosing Weight 75, kg, Priority: STAT, Start date: 09/15/17 15:37:00 CDT, Stop date: 09/15/17 15:37:00 CDT Notes: (Same as: Ativan) Start Date: 09/15/17 Stop Date: 09/15/17 Status: Completed Latuda 40 mg, Route: PO, ONCE, Dosing Weight 75, kg, Start date: 09/15/17 19:51:00 CDT, Stop date: 09/15/17 19:51:00 CDT Start Date: 09/15/17 Stop Date: 09/15/17 Status: Discontinued NS (Bolus) IV 1,000 mL, 1,000 ml/hr, Infuse Over: 1 hr, Route: IV, 1,000, Drug form: INJ, ONCE , Priority: STAT, Dosing Weight 75 kg, Start date: 09/15/17 14:42:00 CDT, Durati on: 1 doses or times, Stop date: 09/15/17 14:42:00 CDT Start Date: 09/15/17 Stop Date: 09/15/17 Status: Completed ondansetron 4 mg, Route: IVP, Drug form: INJ, ONCE, Dosing Weight 75, kg, Priority: STAT, St art date: 09/15/17 16:38:00 CDT, Stop date: 09/15/17 16:38:00 CDT Start Date: 09/15/17 Stop Date: 09/15/17 Status: Completed Zofran 4 mg, Route: IVP, Drug form: INJ, ONCE, Dosing Weight 75, kg, Priority: STAT, St art date: 09/15/17 20:14:00 CDT, Stop date: 09/15/17 20:14:00 CDT Start Date: 09/15/17 Stop Date: 09/15/17 Status: Completed Results ELECTROLYTES Most recent to 1 oldest [Reference Range]: Sodium Lvl [135-145 140 mEq/L mEq/L] (09/15/17 3:32 PM) Potassium Lvl 3.8 mEq/L [3.5-5.1 mEq/L] (09/15/17 3:32 PM) Chloride Lvl [95-109 108 mEq/L mEq/L] (09/15/17 3:32 PM) CO2 [24-32 mEq/L] 26 mEq/L (09/15/17 3:32 PM) AGAP [10.0-20.0 9.8 mEq/L mEq/L] *LOW* (09/15/17 3:32 PM) CHEM PANEL Most recent to 1 oldest [Reference Range]: Creatinine Lvl 0.91 mg/dL [0.50-1.40 mg/dL] (09/15/17 3:32 PM) eGFR 77 mL/min/1.73m2 1 *NA* (09/15/17 3:32 PM) BUN [7-22 mg/dL] 12 mg/dL (09/15/17 3:32 PM) B/C Ratio [6-25] 13 (09/15/17 3:32 PM) Glucose Lvl [70-99 125 mg/dL mg/dL] *HI* (09/15/17 3:32 PM) Total Protein 7.2 g/dL [6.4-8.4 g/dL] (09/15/17 3:32 PM) Albumin Lvl [3.5-5.0 3.6 g/dL g/dL] (09/15/17 3:32 PM) Globulin [2.7-4.2 3.6 g/dL g/dL] (09/15/17 3:32 PM) A/G Ratio [0.7-1.6] 1.0 (09/15/17 3:32 PM) Calcium Lvl 8.5 mg/dL [8.5-10.5 mg/dL] (09/15/17 3:32 PM) ALT [0-65 unit/L] 18 unit/L (09/15/17 3:32 PM) AST [0-37 unit/L] 22 unit/L (09/15/17 3:32 PM) Alk Phos [39-136 60 unit/L unit/L] (09/15/17 3:32 PM) Bili Total [0.2-1.3 0.4 mg/dL mg/dL] (09/15/17 3:32 PM) Lipase Lvl [73-393 246 unit/L unit/L] (09/15/17 3:32 PM) 1Result Comment: The eGFR is calculated using the [...] from the National Kidney Disease Education Program ( NKDEP) which additionally recommends that when the eGFR is used in patients with extremes of body mass index for purposes of drug dosing, the eGFR should be mul tiplied by the estimated BMI. DRUG SCREEN Most recent to 1 oldest [Reference Range]: U Amph Scr Negative [Negative] *NA* (09/15/17 3:32 PM) U Paula Scr Negative [Negative] *NA* (09/15/17 3:32 PM) U Benzodia Scr Negative [Negative] *NA* (09/15/17 3:32 PM) U Cocaine Scr Negative [Negative] *NA* (09/15/17 3:32 PM) U Opiate Scr Negative [Negative] *NA* (09/15/17 3:32 PM) U Phencyc Scr Negative [Negative] *NA* (09/15/17 3:32 PM) U Cannab Scr Positive [Negative] *ABN* (09/15/17 3:32 PM) UDS Note See Note (09/15/17 3:32 PM) TOXICOLOGY Most recent to 1 oldest [Reference Range]: Acetaminoph Lvl <2 [10-20] (09/15/17 3:32 PM) Salicylate Lvl 8.9 mg/dL [0.0-30.0 mg/dL] (09/15/17 3:32 PM) Etoh (%) <.003 % *NA* (09/15/17 3:32 PM) Ethanol Lvl <3 mg/dL *NA* (09/15/17 3:32 PM) ENDOCRINOLOGY Most recent to 1 oldest [Reference Range]: S Preg [Negative] Negative *NA* (09/15/17 3:36 PM) HEMATOLOGY Most recent to 1 oldest [Reference Range]: WBC [3.7-10.4 K/CMM] 4.5 K/CMM (09/15/17 3:32 PM) RBC [4.20-5.40 4.20 M/CMM M/CMM] (09/15/17 3:32 PM) Hgb [12.0-16.0 g/dL] 12.8 g/dL (09/15/17 3:32 PM) Hct [36.0-48.0 %] 36.6 % (09/15/17 3:32 PM) MCV [80.0-98.0 fL] 87.2 fL (09/15/17 3:32 PM) MCH [27.0-31.0 pg] 30.5 pg (09/15/17 3:32 PM) MCHC [32.0-36.0 35.0 g/dL g/dL] (09/15/17 3:32 PM) RDW [11.5-14.5 %] 13.4 % (09/15/17 3:32 PM) Platelet [133-450 103 K/CMM K/CMM] *LOW* (09/15/17 3:32 PM) MPV [7.4-10.4 fL] 9.0 fL (09/15/17 3:32 PM) Segs [45.0-75.0 %] 51.3 % (09/15/17 3:32 PM) Lymphocytes 37.8 % [20.0-40.0 %] (09/15/17 3:32 PM) Monocytes [2.0-12.0 9.4 % %] (09/15/17 3:32 PM) Eosinophils [0.0-4.0 1.2 % %] (09/15/17 3:32 PM) Basophils [0.0-1.0 0.3 % %] (09/15/17 3:32 PM) Segs-Bands # 2.3 K/CMM [1.5-8.1 K/CMM] (09/15/17 3:32 PM) Lymphocytes # 1.7 K/CMM [1.0-5.5 K/CMM] (09/15/17 3:32 PM) Monocytes # [0.0-0.8 0.4 K/CMM K/CMM] (09/15/17 3:32 PM) Eosinophils # 0.1 K/CMM [0.0-0.5 K/CMM] (09/15/17 3:32 PM) Immunizations No data available for this section [...]
--- OUTSIDE RECORDS SUMMARY | 2018-10-30 11:35 | XMS REPORT | Summary of Care ---
Author Organization Unknown Address Unknown Phone Unavailable Encounter HQ Rosana(JAKE) [id number] Date(s): 03/06/15 - 03/06/15 [facility] [address] [employer] provided by [employer] [place] [address]- Discharge Diagnosis: Back pain Discharge Disposition: Home Physician Attending: Ro Thao MD Physician Admitting: Rod Chau MD Vital Signs 1 2 3 Most recent to oldest [Reference Range]: 167.64 cm (03/06/15 3:43 AM) Height 98.5 DegF (03/06/15 11:15 AM) 97.8 DegF (03/06/15 3:43 AM) Temperature Oral [96.4-99.1 DegF] 142/78 mmHg *HI* (03/06/15 11:15 AM) 166/98 mmHg *HI* (03/06/15 10:30 AM) 148/81 mmHg *HI* (03/06/15 9:30 AM) Blood Pressure [90-140/60-90 mmHg] 18 BRMIN (03/06/15 11:15 AM) 18 BRMIN (03/06/15 10:30 AM) 18 BRMIN (03/06/15 9:30 AM) Respiratory Rate [14-20 BRMIN] 80 bpm (03/06/15 11:15 AM) 86 bpm (03/06/15 5:00 AM) 85 bpm (03/06/15 3:43 AM) Peripheral Pulse Rate [60-100 bpm] 118.182 kg (03/06/15 3:43 AM) Weight 42.05 m2 (03/06/15 3:43 AM) Body Mass Index Problem List Condition Effective Dates Status Health Status Informant Depression(Confirmed Resolved ) Diabetes(Confirmed) Resolved HTN Resolved (hypertension)(Confi rmed) Allergies, Adverse Reactions, Alerts Substance Reaction Severity Status NKDA Active Medications acetaminophen-hydrocodone 325 mg-5 mg oral tablet 1 tab, Route: PO, Drug Form: TAB, Dosing Weight 118.182, kg, ONCE, STAT, Start d ate: 03/06/15 10:43:00, Stop date: 03/06/15 10:43:00 Start Date: 03/06/15 Stop Date: 03/06/15 Status: Completed Ativan 1 mg, Route: IVP, Drug form: INJ, ONCE, Dosing Weight 118.182, kg, Priority: STA T, Start date: 03/06/15 6:58:00, Stop date: 03/06/15 6:58:00 Start Date: 03/06/15 Stop Date: 03/06/15 Status: Completed Dilaudid 1 mg, Route: IVP, ONCE, Dosing Weight 118.182, kg, Priority: STAT, Start date: 0 03/06/15 4:09:00, Stop date: 03/06/15 4:09:00 Start Date: 03/06/15 Stop Date: 03/06/15 Status: Completed morphine Sulfate 4 mg, Route: IVP, Drug form: INJ, ONCE, Dosing Weight 118.182, kg, Priority: STA T, Start date: 03/06/15 6:58:00, Stop date: 03/06/15 6:58:00 Start Date: 03/06/15 Stop Date: 03/06/15 Status: Completed NS 1,000 mL 1,000 mL, Rate: 1,000 ml/hr, Infuse over: 1 hr, Route: IV, Dosing Weight 118.182 kg, Total Volume: 1,000, Start date: 03/06/15 4:09:00, Duration: 1 doses or austin es, Stop date: 03/06/15 5:08:00, Bolus Dose Special Instructions: Bolus Dose Start Date: 03/06/15 Stop Date: 03/06/15 Status: Completed ondansetron 4 mg, Route: IVP, Drug form: INJ, ONCE, Dosing Weight 118.182, kg, Priority: STA T, Start date: 03/06/15 10:23:00, Stop date: 03/06/15 10:23:00 Start Date: 03/06/15 Stop Date: 03/06/15 Status: Completed Zofran 4 mg, Route: IVP, Drug form: INJ, ONCE, Dosing Weight 118.182, kg, Priority: STA T, Start date: 03/06/15 4:10:00, Stop date: 03/06/15 4:10:00 Start Date: 03/06/15 Stop Date: 03/06/15 Status: Completed Results No data available for this section Immunizations No data available for this section Procedures Procedure Date Related Diagnosis Body Site Carpal tunnel release Hysterectomy Social History Social History Type Response Smoking Status Never smoker; Exposure to Tobacco Smoke None; Cigarette Smoking Last 365 Days No; Reg Smoking Cessation Counseling No Assessment and Plan Extracted from: Title: ORS Spine Progress Note Author: Nhaum Rivera MD Date: 03/06/15 ORS Spine Progress Note S: Patient resting comfortably. Complies with exam. C/o some low back and LLE pain. Patient able to urinate since arrival in ED. O: Vitals and Temp: VitalsTmp(F)[id number] 03/06 05:00----[id number]--- 03/06 03:[id number]--- 24 Hr Tmax: 97.8F (36.56c) at 03/06 03:43Vital Signs are the last 5 in the past 48 hours. Labs: (no lab data in past 24 hours) Exam: Gen: awake, alert, follow commands. Extremity Neurological Motor: C5 C6 C7 C8 T1 L2 L3 L4 L5 S1 R 5/5 5/5 5/5 5/5 5/5 5/5 5/5 5/5 5/5 5/5 L 5/5 5/5 5/5 5/5 5/5 5/5 5/5 5/5 5/5 5/5 Extremity Neurourological Sensory: SILT in BUE C5-T2; and SILT in BLE L2-S1 however subjectively decreased in distal thight to foot in all nerve distributions LLE Imaging: -CT T/L spine: no acute fracture -MRI L spine: Assessment: 39F with low back pain and LLE pain Plan: -Encourage activity and ambulation -MRI L-spine shows no acute fracture or disk herniation -No acute ORS Spine intervention -Pateint seen an examined by Dr. Chau who agrees with the plan. -Debi should f/u with PCP if she continues to have low back pain [place] [phone] with questions, concerns, or with changes in the neurologic exam or call [phone] for emergencies. Addendum Spine Attending: by Patient seen and examined by myself. Agree with above assesment and plan. GOFDREY Chau MD on 03/07/2015 17:37
--- OUTSIDE RECORDS SUMMARY | 2018-10-30 11:35 | XMS REPORT | Summary of Care ---
Author Organization Unknown Address Unknown Phone Unavailable Encounter HQ Encntr_alias(FIN) [id number] Date(s): 08/22/14 - 08/22/14 [facility] Outpatient Imaging - [address] [address]- [place] Discharge Disposition: Home Physician Attending: Justice Luna MD Reason for Visit 719.43 - JOINT PAIN-FORE Problem List No data available for this section Allergies, Adverse Reactions, Alerts No data available for this section Medications No data available for this section Medications Administered During Your Visit No data available for this section Immunizations No data available for this section
--- OUTSIDE RECORDS SUMMARY | 2018-10-30 11:35 | XMS REPORT | Summary of Care ---
Author Author [facility] Organization [facility] Address Unknown Phone Unavailable Encounter PADMINI Wayne(JAKE) [id number] Date(s): 02/05/17 - 02/06/17 [facility] [address] [place] [address]- Discharge Diagnosis: LUQ abdominal pain Discharge Diagnosis: Vertigo Discharge Disposition: Home or Self Care Attending Physician: Beth Smith MD Vital Signs 1 2 3 Most recent to oldest [Reference Range]: 167.64 cm (02/05/17 6:31 PM) Height 98.0 DegF (02/06/17 12:10 AM) 98.3 DegF (02/05/17 9:21 PM) 98.3 DegF (02/05/17 8:27 PM) Temperature Oral [96.4-99.1 DegF] 120/76 mmHg (02/06/17 12:10 AM) 112/71 mmHg (02/05/17 9:45 PM) 117/73 mmHg (02/05/17 9:21 PM) Blood Pressure [90-140/60-90 mmHg] 12 BRMIN *LOW* (02/06/17 12:10 AM) 15 BRMIN (02/05/17 11:00 PM) 15 BRMIN (02/05/17 9:45 PM) Respiratory Rate [14-20 BRMIN] 73 bpm (02/05/17 6:52 PM) 90 bpm (02/05/17 6:31 PM) Peripheral Pulse Rate [60-100 bpm] 72.727 kg (02/05/17 6:31 PM) Weight 25.88 m2 (02/05/17 6:31 PM) Body Mass Index Problem List Condition Effective Dates Status Health Status Informant Apnea, Resolved sleep(Confirmed) Diabetes(Confirmed) Resolved HDL - High density Resolved lipoprotein cholesterol(Confirme d) HTN Resolved (hypertension)(Confi rmed) Allergies, Adverse Reactions, Alerts Substance Reaction Severity Status codeine Active Medications Benadryl 50 mg, 1 mL, Route: IVP, Drug form: INJ, ONCE, Dosing Weight 72.727, kg, Priorit y: STAT, Start date: 02/05/17 18:51:00 CDT, Stop date: 02/05/17 18:51:00 CDT Notes: (Same as: Benadryl) Start Date: 02/05/17 Stop Date: 02/05/17 Status: Completed meclizine 25 mg oral tablet 25 mg=1 tab, PO, TID, PRN dizziness, X 10 day, # 30 tab, 0 Refill(s) Start Date: 02/05/17 Stop Date: 02/15/17 Status: Ordered morphine Sulfate 4 mg, 1 mL, Route: IVP, Drug form: SOLN, ONCE, Dosing Weight 72.727, kg, Priorit y: STAT, Start date: 02/05/17 19:31:00 CDT, Stop date: 02/05/17 19:31:00 CDT Notes: (Same as:MORPhine Sulfate) Start Date: 02/05/17 Stop Date: 02/05/17 Status: Completed Reglan 10 mg, 2 mL, Route: IVP, Drug form: INJ, ONCE, Dosing Weight 72.727, kg, Priorit y: STAT, Start date: 02/05/17 18:51:00 CDT, Stop date: 02/05/17 18:51:00 CDT Notes: (Same as: Reglan) Start Date: 02/05/17 Stop Date: 02/05/17 Status: Completed Results ELECTROLYTES Most recent to 1 oldest [Reference Range]: Sodium Lvl [135-145 142 mEq/L mEq/L] (02/05/17 7:57 PM) Potassium Lvl 4.1 mEq/L [3.5-5.1 mEq/L] (02/05/17 7:57 PM) Chloride Lvl [95-109 111 mEq/L mEq/L] *HI* (02/05/17 7:57 PM) CO2 [24-32 mEq/L] 23 mEq/L *LOW* (02/05/17 7:57 PM) AGAP [10.0-20.0 12.1 mEq/L mEq/L] (02/05/17 7:57 PM) CHEM PANEL Most recent to 1 oldest [Reference Range]: Creatinine Lvl 0.83 mg/dL [0.50-1.40 mg/dL] (02/05/17 7:57 PM) eGFR 87 mL/min/1.73m2 1 *NA* (02/05/17 7:57 PM) BUN [7-22 mg/dL] 11 mg/dL (02/05/17 7:57 PM) B/C Ratio [6-25] 13 (02/05/17 7:57 PM) Glucose Lvl [70-99 104 mg/dL mg/dL] *HI* (02/05/17 7:57 PM) Total Protein 6.8 g/dL [6.4-8.4 g/dL] (02/05/17 7:57 PM) Albumin Lvl [3.5-5.0 3.1 g/dL g/dL] *LOW* (02/05/17 7:57 PM) Globulin [2.7-4.2 3.7 g/dL g/dL] (02/05/17 7:57 PM) A/G Ratio [0.7-1.6] 0.8 (02/05/17 7:57 PM) Calcium Lvl 8.1 mg/dL [8.5-10.5 mg/dL] *LOW* (02/05/17 7:57 PM) ALT [0-65 unit/L] 24 unit/L (02/05/17 7:57 PM) AST [0-37 unit/L] 25 unit/L (02/05/17 7:57 PM) Alk Phos [39-136 80 unit/L unit/L] (02/05/17 7:57 PM) Bili Total [0.2-1.3 0.3 mg/dL mg/dL] (02/05/17 7:57 PM) Lipase Lvl [73-393 214 unit/L unit/L] (02/05/17 7:57 PM) 1Result Comment: The eGFR is calculated [...] be mul tiplied by the estimated BMI. CARDIAC ENZYMES Most recent to 1 oldest [Reference Range]: Troponin-I <0.02 ng/mL [0.00-0.40 ng/mL] (02/05/17 7:57 PM) ENDOCRINOLOGY Most recent to 1 oldest [Reference Range]: S Preg [Negative] Negative *NA* (02/05/17 7:57 PM) URINE AND STOOL Most recent to 1 oldest [Reference Range]: UA Turbidity [Clear] Clear (02/05/17 7:57 PM) UA Color [Yellow] Yellow *NA* (02/05/17 7:57 PM) UA pH [5.0-8.0] 5.0 (02/05/17 7:57 PM) UA Spec Grav 1.012 [<=1.030] (02/05/17 7:57 PM) UA Glucose [Negative Negative mg/dL mg/dL] *NA* (02/05/17 7:57 PM) UA Blood [Negative] Negative (02/05/17 7:57 PM) UA Ketones [Negative Negative mg/dL mg/dL] *NA* (02/05/17 7:57 PM) UA Protein [Negative Negative mg/dL mg/dL] (02/05/17 7:57 PM) UA Urobilinogen <=1.0 mg/dL [0.1-1.0 mg/dL] *NA* (02/05/17 7:57 PM) UA Bili [Negative] Negative *NA* (02/05/17 7:57 PM) UA Leuk Est Negative [Negative] (02/05/17 7:57 PM) UA Nitrite Negative [Negative] (02/05/17 7:57 PM) UA WBC [0-5 /HPF] 1 /HPF (02/05/17 7:57 PM) UA RBC [0-2 /HPF] 4 /HPF *HI* (02/05/17 7:57 PM) UA Bacteria [None Occasional /HPF Seen /HPF] *NA* (02/05/17 7:57 PM) UA Sq Epi [Few /LPF] Occasional /LPF *NA* (02/05/17 7:57 PM) UA Hyal Cast [0-2 9 /LPF /LPF] *HI* (02/05/17 7:57 PM) UA Mucus [None Seen Few /LPF /LPF] *NA* (02/05/17 7:57 PM) HEMATOLOGY Most recent to 1 oldest [Reference Range]: WBC [3.7-10.4 K/CMM] 8.0 K/CMM (02/05/17 7:57 PM) RBC [4.20-5.40 3.88 M/CMM M/CMM] *LOW* (02/05/17 7:57 PM) Hgb [12.0-16.0 g/dL] 11.7 g/dL *LOW* (02/05/17 7:57 PM) Hct [36.0-48.0 %] 34.0 % *LOW* (02/05/17 7:57 PM) MCV [80.0-98.0 fL] 87.8 fL (02/05/17 7:57 PM) MCH [27.0-31.0 pg] 30.3 pg (02/05/17 7:57 PM) MCHC [32.0-36.0 34.5 g/dL g/dL] (02/05/17 7:57 PM) RDW [11.5-14.5 %] 13.6 % (02/05/17 7:57 PM) Platelet [133-450 121 K/CMM K/CMM] *LOW* (02/05/17 7:57 PM) MPV [7.4-10.4 fL] 10.0 fL (02/05/17 7:57 PM) Segs [45.0-75.0 %] 69.1 % (02/05/17 7:57 PM) Lymphocytes 24.6 % [20.0-40.0 %] (02/05/17 7:57 PM) Monocytes [2.0-12.0 5.6 % %] (02/05/17 7:57 PM) Eosinophils [0.0-4.0 0.5 % %] (02/05/17 7:57 PM) Basophils [0.0-1.0 0.2 % %] (02/05/17 7:57 PM) Segs-Bands # 5.5 K/CMM [1.5-8.1 K/CMM] (02/05/17 7:57 PM) Lymphocytes # 2.0 K/CMM [1.0-5.5 K/CMM] (02/05/17 7:57 PM) Monocytes # [0.0-0.8 0.4 K/CMM K/CMM] (02/05/17 7:57 PM) VIRAL - SEROLOGY Most recent to 1 oldest [Reference Range]: Influ A [Negative] Negative (02/05/17 7:57 PM) Influ B [Negative] Negative (02/05/17 7:57 PM) Immunizations No data available for this section Procedures Procedure Date Related Diagnosis Body Site Gastric bypass1 Lumpectomy of breast Partial hysterectomy 2015 Social History Social History Type Response Substance Abuse Use: None. Alcohol Current, Frequency: 1-2 times per month. Smoking Status Current some day smoker; Type: Cigarettes; Exposure to Tobacco Smoke None; Cigarette Smoking Last 365 Days Yes; Reg Smoking Cessation Counseling No Assessment and Plan No data available for this section
--- OUTSIDE RECORDS SUMMARY | 2018-10-30 11:35 | XMS REPORT | Summary of Care ---
Author Author [facility] [place] [place] [facility] [facility] [place] Address Unknown Phone Unavailable Encounter HQ Haja_juan carlos(FIN) [id number] Date(s): 02/12/18 - 02/12/18 [facility] Spine [facility] [address] [facility] [address] [phone] Attending Physician: Rakan Navarrete MD Referring Physician: Justice Luna MD Vital [...]
--- OUTSIDE RECORDS SUMMARY | 2018-10-30 11:35 | XMS REPORT | Summary of Care ---
Author Author [facility] Spine Clinic [facility] Organization [facility] Spine Clinic [facility] Address Unknown Phone Unavailable Encounter HQ Jayder_juan carlos(FIN) [id number] Date(s): 02/11/18 - 02/12/18 [facility] Spine [facility] [address] [facility] [address] [phone] Vital Signs No data available for this [...]
--- OUTSIDE RECORDS SUMMARY | 2018-10-30 11:35 | XMS REPORT | Summary of Care ---
Author Author [facility] Organization [facility] Neurosurgery [facility] Address Unknown Phone Unavailable Encounter HQ Encntr_alisiva(FIN) [id number] Date(s): 02/03/18 - 02/04/18 [facility] Neurosurgery [facility] [address] [facility], [address] [place], [place] [address] [phone] Vital Signs No data available for this [...]
--- OUTSIDE RECORDS SUMMARY | 2018-10-30 11:35 | XMS REPORT | Summary of Care ---
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
--- OUTSIDE RECORDS SUMMARY | 2018-10-30 11:35 | XMS REPORT | Summary of Care ---
Author Author [facility] Outpatient Imaging [facility] Outpatient [facility] Address Unknown Phone Unavailable Encounter HQ Encntr_alisiva(FIN) [id number] Date(s): 10/13/17 - 10/13/17 [facility] [address] [facility], [address] [place] [phone] Discharge Disposition: Home or Self Care Attending Physician: Justice Luna MD Vital Signs No [...]
--- OUTSIDE RECORDS SUMMARY | 2018-10-30 11:35 | XMS REPORT | Summary of Care ---
Author Author [facility] Address Unknown Phone Unavailable Encounter HQ Rosana(JAKE) [id number] Date(s): 03/08/16 - 03/09/16 [facility] [address] [place] [address]- [phone] Discharge Disposition: Home Attending Physician: Marek Gandhi MD Admitting Physician: Marek Gandhi MD Vital Signs 1 2 3 Most recent to oldest [Reference Range]: 167.6 cm (03/08/16 6:40 PM) 167.64 cm (03/08/16 11:45 AM) Height 98.5 DegF (03/09/16 11:18 AM) 98 DegF (03/09/16 6:51 AM) 98.6 DegF (03/09/16 3:25 AM) Temperature Oral [96.4-99.1 DegF] 110/72 mmHg (03/09/16 11:18 AM) 129/78 mmHg (03/09/16 6:51 AM) 100/66 mmHg (03/09/16 3:25 AM) Blood Pressure [90-140/60-90 mmHg] 16 BRMIN (03/09/16 11:18 AM) 17 BRMIN (03/09/16 6:51 AM) 18 BRMIN (03/09/16 3:25 AM) Respiratory Rate [14-20 BRMIN] 71 bpm (03/09/16 11:18 AM) 76 bpm (03/09/16 6:51 AM) 68 bpm (03/09/16 3:25 AM) Peripheral Pulse Rate [60-100 bpm] 100.9 kg (03/08/16 6:40 PM) 100.909 kg (03/08/16 11:45 AM) Weight 35.92 m2 (03/08/16 6:40 PM) 35.91 m2 (03/08/16 11:45 AM) Body Mass Index Problem List Condition Effective Dates Status Health Status Informant Apnea, Resolved sleep(Confirmed) Diabetes(Confirmed) Resolved HDL - High density Resolved lipoprotein cholesterol(Confirme d) HTN Resolved (hypertension)(Confi rmed) Allergies, Adverse Reactions, Alerts Substance Reaction Severity Status NKDA Active Medications acetaminophen 325 mg, 1 tab, Route: PO, Drug form: TAB, Q4H, Dosing Weight 100.909, kg, PRN Pa in Score 4-6, Start date: 03/08/16 17:46:00 CDT, Duration: 30 day, Stop date: 17:45:00 CDT Notes: Do not exceed 4 gm/day. (Same as: Tylenol) Start Date: 03/08/16 Stop Date: 03/09/16 Status: Discontinued atropine 0.5 mg, 5 mL, Route: IVP, Drug form: INJ, PRN, PRN Bradycardia, Start date: 02/21 05/08 21:50:00 CDT, Duration: 30 day, Stop date: 04/07/16 21:49:00 CDT Start Date: 03/08/16 Stop Date: 03/09/16 Status: Discontinued Dextrose 50% Syringe 25 gm, 50 mL, Route: IVP, Drug Form: INJ, Dosing Weight 100.909, kg, PRN, PRN Bl ood Glucose Results, Start date: 03/08/16 17:47:00 CDT, Duration: 30 day, Stop d ate: 04/07/16 17:46:00 CDT Start Date: 03/08/16 Stop Date: 03/09/16 Status: Discontinued Dextrose 50% Syringe 12.5 gm, 25 mL, Route: IVP, Drug Form: INJ, Dosing Weight 100.909, kg, PRN, PRN Blood Glucose Results, Start date: 03/08/16 17:47:00 CDT, Duration: 30 day, Stop date: 04/07/16 17:46:00 CDT Start Date: 03/08/16 Stop Date: 03/09/16 Status: Discontinued famotidine 20 mg, 2 mL, Route: IVP, Drug form: INJ, ONCE, kg, Priority: STAT, Start date: 0 03/08/16 11:33:00 CDT, Stop date: 03/08/16 11:33:00 CDT Notes: (Same as: Pepcid)Can be dilute in 5-10cc NS IVP: Slow IV push over at le ast 2 minutes. Start Date: 03/08/16 Stop Date: 03/08/16 Status: Completed GI cocktail 30 mL, Route: PO, Drug Form: SUSP, kg, ONCE, STAT, Start date: 03/08/16 11:33:00 CDT, Stop date: 03/08/16 11:33:00 CDT Notes: G.I. Cocktail=antacid with simethicone 22.5 mL - lidocaine viscous 7.5 mL Start Date: 03/08/16 Stop Date: 03/08/16 Status: Completed glucagon 1 mg, Route: IM, Drug form: PDR/INJ, PRN, Dosing Weight 100.909, kg, PRN Blood G lucose Results, Start date: 03/08/16 17:47:00 CDT, Duration: 30 day, Stop date: 04/07/16 17:46:00 CDT Start Date: 03/08/16 Stop Date: 03/09/16 Status: Discontinued insulin aspart 5 unit, 0.05 mL, Route: SUB-Q, Drug form: SOLN, TID-Before Meals, Dosing Weight 100.909, kg, PRN Blood Glucose Results, Start date: 03/08/16 17:47:00 CDT, Durat ion: 30 day, Stop date: 04/07/16 17:46:00 CDT Notes: Roll in palms of hands gently; Do not shake vigorously. (Same as: NovoLO G)"single patient use only"WASTE: F/P - Black; E - Municipal Trash Bin Stable f or 28 days at room temperature.Expires in days from Date Start Date: 03/08/16 Stop Date: 03/09/16 Status: Discontinued insulin aspart 4 unit, 0.04 mL, Route: SUB-Q, Drug form: SOLN, TID-Before Meals, Dosing Weight 100.909, kg, PRN Blood Glucose Results, Start date: 03/08/16 17:47:00 CDT, Durat ion: 30 day, Stop date: 04/07/16 17:46:00 CDT Notes: Roll in palms of hands gently; Do not shake vigorously. (Same as: NovoEVARISTO Henry)"single patient use only"WASTE: F/P - Black; E - Municipal Trash Bin Stable f or 28 days at room temperature.Expires in days from Date Start Date: 03/08/16 Stop Date: 03/09/16 Status: Discontinued insulin aspart 1 unit, 0.01 mL, Route: SUB-Q, Drug form: SOLN, TID-Before Meals, Dosing Weight 100.909, kg, PRN Blood Glucose Results, Start date: 03/08/16 17:47:00 CDT, Durat ion: 30 day, Stop date: 04/07/16 17:46:00 CDT Notes: Roll in palms of hands gently; Do not shake vigorously. (Same as: NovoEVARISTO Henry)"single patient use only"WASTE: F/P - Black; E - Municipal Trash Bin Stable f or 28 days at room temperature.Expires in days from Date Start Date: 03/08/16 Stop Date: 03/09/16 Status: Discontinued insulin aspart 3 unit, 0.03 mL, Route: SUB-Q, Drug form: SOLN, TID-Before Meals, Dosing Weight 100.909, kg, PRN Blood Glucose Results, Start date: 03/08/16 17:47:00 CDT, Durat ion: 30 day, Stop date: 04/07/16 17:46:00 CDT Notes: Roll in palms of hands gently; Do not shake vigorously. (Same as: NovoEVARISTO Henry)"single patient use only"WASTE: F/P - Black; E - Municipal Trash Bin Stable f or 28 days at room temperature.Expires in days from Date Start Date: 03/08/16 Stop Date: 03/09/16 Status: Discontinued insulin aspart 2 unit, 0.02 mL, Route: SUB-Q, Drug form: SOLN, TID-Before Meals, Dosing Weight 100.909, kg, PRN Blood Glucose Results, Start date: 03/08/16 17:47:00 CDT, Durat ion: 30 day, Stop date: 04/07/16 17:46:00 CDT Notes: Roll in palms of hands gently; Do not shake vigorously. (Same as: Prem Henry)"single patient use only"WASTE: F/P - Black; E - Municipal Trash Bin Stable f or 28 days at room temperature.Expires in days from Date Start Date: 03/08/16 Stop Date: 03/09/16 Status: Discontinued meclizine 25 mg, 1 tab, Route: PO, Drug form: TAB, ONCE, Dosing Weight 100.909, kg, Priori ty: STAT, Start date: 03/08/16 15:40:00 CDT, Stop date: 03/08/16 15:40:00 CDT Notes: (Same as: Antivert) Start Date: 03/08/16 Stop Date: 03/08/16 Status: Completed meclizine 25 mg, 1 tab, Route: PO, Drug form: TAB, ONCE, Dosing Weight 100.909, kg, Priori ty: STAT, Start date: 03/08/16 17:48:00 CDT, Stop date: 03/08/16 17:48:00 CDT Notes: (Same as: Antivert) Start Date: 03/08/16 Stop Date: 03/08/16 Status: Completed meclizine 25 mg, 1 tab, Route: PO, Drug form: TAB, TID, Dosing Weight 100.9, kg, Priority: NOW, Start date: 03/09/16 11:29:00 CDT, Duration: 30 day, Stop date: 04/08/16 9 :00:00 CDT Notes: (Same as: Antivert) Start Date: 03/09/16 Stop Date: 03/09/16 Status: Discontinued meclizine 25 mg oral tablet 25 mg=1 tab, PO, TID, PRN as needed for dizziness, # 30 tab, 0 Refill(s) Start Date: 03/09/16 Status: Ordered morphine Sulfate 2 mg, 1 mL, Route: IVP, Drug form: INJ, Q4H, Dosing Weight 100.909, kg, PRN Pain Score 7-10, Start date: 03/08/16 17:46:00 CDT, Duration: 30 day, Stop date: 17:45:00 CDT Notes: (Same as:MORPhine Sulfate) Start Date: 03/08/16 Stop Date: 03/09/16 Status: Discontinued nitroglycerin 0.4 mg sublingual tablet 0.4 mg, 1 tab, Route: SL, Drug form: TAB, Q5Min, PRN Chest Pain, Start date: 21:50:00 CDT, Duration: 30 day, Stop date: 04/07/16 21:49:00 CDT Notes: (Same as:Nitroquick, Nitrostat)"Do Not Crush" Sublingual tablet Start Date: 03/08/16 Stop Date: 03/09/16 Status: Discontinued normal saline 0.9% IV 1,000 mL 1,000 mL, Rate: 100 ml/hr, Infuse over: 10 hr, Route: IV, Dosing Weight 100.909 kg, Total Volume: 1,000, Start date: 03/08/16 17:57:00 CDT, Stop date: 04/07/16 17:56:00 CDT Start Date: 03/08/16 Stop Date: 03/09/16 Status: Discontinued ondansetron 4 mg, 2 mL, Route: IVP, Drug form: INJ, Q6H, Dosing Weight 100.909, kg, PRN Naus ea & Vomiting, Start date: 03/08/16 17:46:00 CDT, Duration: 30 day, Stop date: 04/07/16 17:45:00 CDT Notes: (Same as: Scotty) MEDICATION WASTE Product Size: 4 mgProduct Was sriram: ___ mg Start Date: 03/08/16 Stop Date: 03/09/16 Status: Discontinued ondansetron 4 mg, 2 mL, Route: IVP, Drug form: INJ, ONCE, kg, Priority: STAT, Start date: 11:33:00 CDT, Stop date: 03/08/16 11:33:00 CDT Notes: (Same as: Scotty) MEDICATION WASTE Product Size: 4 mgProduct Was sriram: ___ mg Start Date: 03/08/16 Stop Date: 03/08/16 Status: Completed potassium chloride 40 mEq, 30 mL, Route: PO, Drug form: LIQ, ONCE, Dosing Weight 100.9, kg, Start d ate: 03/09/16 11:27:00 CDT, Stop date: 03/09/16 11:27:00 CDT Notes: (Same as: Potassium Chloride) Start Date: 03/09/16 Stop Date: 03/09/16 Status: Completed potassium chloride 10 mEq, 100 mL, Route: IVPB, Drug form: INJ, Q1H, Dosing Weight 100.909, kg, Tot al Dose=40 meq, Start date: 03/08/16 15:00:00 CDT, Duration: 4 doses or times, S top date: 03/08/16 18:00:00 CDT, Peripheral Line Notes: Infuse at a rate of 10 mEq/hr.(Same as: KCL) Start Date: 03/08/16 Stop Date: 03/08/16 Status: Completed Protonix 40 mg, Route: IVP, Drug form: INJ, ONCE, Dosing Weight 100.9, kg, Start date: 11:26:00 CDT, Stop date: 03/09/16 11:26:00 CDT Notes: For IV push reconstitute with 10 ml 0.9% sodium chloride and push over 2 minutes. (Same as: Protonix) Start Date: 03/09/16 Stop Date: 03/09/16 Status: Completed Protonix 40 mg oral enteric coated tablet 40 mg=1 tab, PO, Daily, # 30 tab, 0 Refill(s) Start Date: 03/09/16 Status: Ordered Saline Flush 0.9% 10 mL, Route: IVP, Drug Form: INJ, kg, PRN, PRN Line Flush, Start date: 03/08/16 11:33:00 CDT, Duration: 30 day, Stop date: 04/07/16 11:32:00 CDT Notes: (Same as: BD Posiflush) Start Date: 03/08/16 Stop Date: 03/09/16 Status: Discontinued Sodium Chloride 0.9% (Bolus) IV 1,000 mL, 1,000 ml/hr, Infuse Over: 1 hr, Route: IV, 1,000, Drug form: INJ, ONCE , Priority: STAT, Dosing Weight 100.909 kg, Start date: 03/08/16 15:15:00 CDT, D uration: 1 doses or times, Stop date: 03/08/16 15:15:00 CDT Start Date: 03/08/16 Stop Date: 03/08/16 Status: Completed Sodium Chloride 0.9% (Bolus) IV 1,000 mL, 1000 ml/hr, Infuse Over: 1 hr, Route: IV, 1,000, Drug form: INJ, ONCE, Priority: STAT, kg, Start date: 03/08/16 11:33:00 CDT, Duration: 1 doses or austin es, Stop date: 03/08/16 11:33:00 CDT Start Date: 03/08/16 Stop Date: 03/08/16 Status: Completed Sodium Chloride 0.9% (Bolus) IV 1,000 mL, 1,000 ml/hr, Infuse Over: 1 hr, Route: IV, 1,000, Drug form: INJ, ONCE , Priority: STAT, Dosing Weight 100.909 kg, Start date: 03/08/16 14:22:00 CDT, D uration: 1 doses or times, Stop date: 03/08/16 14:22:00 CDT Start Date: 03/08/16 Stop Date: 03/08/16 Status: Completed Sodium Chloride 0.9% (Bolus) IV 1,000 mL, 1,000 ml/hr, Infuse Over: 1 hr, Route: IV, 1,000, Drug form: INJ, ONCE , Priority: STAT, Dosing Weight 100.909 kg, Start date: 03/08/16 15:58:00 CDT, D uration: 1 doses or times, Stop date: 03/08/16 15:58:00 CDT Start Date: 03/08/16 Stop Date: 03/08/16 Status: Completed Solu-MEDROL 125 mg, 2 mL, Route: IVP, Drug form: INJ, ONCE, Dosing Weight 100.9, kg, Start d ate: 03/09/16 11:26:00 CDT, Stop date: 03/09/16 11:26:00 CDT Notes: (Same as:Solu-MEDROL, A-Methapred) Start Date: 03/09/16 Stop Date: 03/09/16 Status: Completed thiamine + Sodium Chloride 0.9% IV 49 mL 100 mg, 1 mL, Route: IVPB, Drug form: INJ, ONCE, Dosing Weight 100.9, kg, Start date: 03/09/16 11:26:00 CDT, Stop date: 03/09/16 11:26:00 CDT Notes: (Same As: Vitamin B1) Start Date: 03/09/16 Stop Date: 03/09/16 Status: Ordered Tylenol 650 mg, 2 tab, Route: PO, Drug form: TAB, ONCE, Dosing Weight 100.909, kg, Prior ity: STAT, Start date: 03/08/16 14:23:00 CDT, Stop date: 03/08/16 14:23:00 CDT Notes: Do not exceed 4 gm/day. (Same as: Tylenol) Start Date: 03/08/16 Stop Date: 03/08/16 Status: Discontinued Zofran 4 mg oral tablet 4 mg=1 tab, PO, Q6H, PRN Nausea, # 20 tab, 0 Refill(s) Start Date: 03/09/16 Status: Ordered Results ELECTROLYTES Most recent to 1 2 oldest [Reference Range]: Sodium Lvl [135-145 141 mEq/L 136 mEq/L mEq/L] (03/09/16 3:24 AM) (03/08/16 12:30 PM) Potassium Lvl 3.2 mEq/L 3.3 mEq/L [3.5-5.1 mEq/L] *LOW* *LOW* (03/09/16 3:24 AM) (03/08/16 12:30 PM) Chloride Lvl [95-109 106 mEq/L 99 mEq/L mEq/L] (03/09/16 3:24 AM) (03/08/16 12:30 PM) CO2 [24-32 mEq/L] 28 mEq/L 26 mEq/L (03/09/16 3:24 AM) (03/08/16 12:30 PM) AGAP [10.0-20.0 10.2 mEq/L 14.3 mEq/L mEq/L] (03/09/16 3:24 AM) (03/08/16 12:30 PM) CHEM PANEL Most recent to 1 2 oldest [Reference Range]: Creatinine Lvl 0.59 mg/dL 0.95 mg/dL [0.50-1.40 mg/dL] (03/09/16 3:24 AM) (03/08/16 12:30 PM) eGFR 113 mL/min/1.73m2 1 74 mL/min/1.73m2 2 *NA* *NA* (03/09/16 3:24 AM) (03/08/16 12:30 PM) BUN [7-22 mg/dL] 10 mg/dL 17 mg/dL (03/09/16 3:24 AM) (03/08/16 12:30 PM) B/C Ratio [6-25] 18 (03/08/16 12:30 PM) Glucose Lvl [70-99 143 mg/dL 184 mg/dL mg/dL] *HI* *HI* (03/09/16 3:24 AM) (03/08/16 12:30 PM) Total Protein 7.7 g/dL [6.4-8.4 g/dL] (03/08/16 12:30 PM) Albumin Lvl [3.5-5.0 3.5 g/dL g/dL] (03/08/16 12:30 PM) Globulin [2.0-4.0 4.2 g/dL g/dL] *HI* (03/08/16 12:30 PM) A/G Ratio [0.7-1.6] 0.8 (03/08/16 12:30 PM) Calcium Lvl 7.8 mg/dL 8.9 mg/dL [8.5-10.5 mg/dL] *LOW* (03/08/16 12:30 PM) (03/09/16 3:24 AM) ALT [0-65 unit/L] 17 unit/L (03/08/16 12:30 PM) AST [0-37 unit/L] 20 unit/L (03/08/16 12:30 PM) Alk Phos [39-136 72 unit/L unit/L] (03/08/16 12:30 PM) Bili Total [0.2-1.3 0.6 mg/dL mg/dL] (03/08/16 12:30 PM) Amylase Lvl [25-115 90 unit/L unit/L] (03/08/16 12:30 PM) Lipase Lvl [73-393 251 unit/L unit/L] (03/08/16 12:30 PM) Ketone Quantitative 2.32 mmol/L [<=0.27 mmol/L] *HI* (03/08/16 12:30 PM) 1Result Comment: The eGFR is calculated [...] be mul tiplied by the estimated BMI. 2Result Comment: The eGFR is calculated using the [...] BMI. CARDIAC ENZYMES Most recent to 1 2 oldest [Reference Range]: Total CK [12-191 47 unit/L unit/L] (03/08/16 12:30 PM) CK MB [0.5-3.6 <0.5 ng/mL ng/mL] (03/08/16 12:30 PM) CK MB Index <1.1 [0.0-2.5] (03/08/16 12:30 PM) Troponin-I <0.02 ng/mL [0.00-0.40 ng/mL] (03/08/16 12:30 PM) ENDOCRINOLOGY Most recent to 1 2 oldest [Reference Range]: S Preg [Negative] Negative *NA* (03/08/16 12:30 PM) URINE AND STOOL Most recent to 1 2 oldest [Reference Range]: UA Turbidity [Clear] Slight *ABN* (03/08/16 6:22 PM) UA Color [Yellow] Yellow *NA* (03/08/16 6:22 PM) UA pH [5.0-8.0] 6.0 (03/08/16 6:22 PM) UA Spec Grav 1.023 [<=1.030] (03/08/16 6:22 PM) UA Glucose [Negative 50 mg/dL mg/dL] *ABN* (03/08/16 6:22 PM) UA Blood [Negative] Negative (03/08/16 6:22 PM) UA Ketones [Negative 80 mg/dL mg/dL] *ABN* (03/08/16 6:22 PM) UA Protein [Negative 30 mg/dL mg/dL] *ABN* (03/08/16 6:22 PM) UA Urobilinogen 2.0 mg/dL [0.1-1.0 mg/dL] *HI* (03/08/16 6:22 PM) UA Bili [Negative] Negative *NA* (03/08/16 6:22 PM) UA Leuk Est Trace [Negative] *ABN* (03/08/16 6:22 PM) UA Nitrite Negative [Negative] (03/08/16 6:22 PM) UA WBC [0-5 /HPF] 2 /HPF (03/08/16 6:22 PM) UA Bacteria [None Occasional /HPF Seen /HPF] *NA* (03/08/16 6:22 PM) UA Sq Epi [Few /LPF] Few /LPF *NA* (03/08/16 6:22 PM) UA Mucus [None Seen Few /LPF /LPF] *NA* (03/08/16 6:22 PM) HEMATOLOGY Most recent to 1 2 oldest [Reference Range]: WBC [3.7-10.4 K/CMM] 9.3 K/CMM 13.5 K/CMM (03/09/16 3:24 AM) *HI* (03/08/16 12:30 PM) RBC [4.20-5.40 4.32 M/CMM 4.86 M/CMM M/CMM] (03/09/16 3:24 AM) (03/08/16 12:30 PM) Hgb [12.0-16.0 g/dL] 12.1 g/dL 13.4 g/dL (03/09/16 3:24 AM) (03/08/16 12:30 PM) Hct [36.0-48.0 %] 35.9 % 40.3 % *LOW* (03/08/16 12:30 PM) (03/09/16 3:24 AM) MCV [80.0-98.0 fL] 83.0 fL 82.9 fL (03/09/16 3:24 AM) (03/08/16 12:30 PM) MCH [27.0-31.0 pg] 28.1 pg 27.7 pg (03/09/16 3:24 AM) (03/08/16 12:30 PM) MCHC [32.0-36.0 33.8 g/dL 33.4 g/dL g/dL] (03/09/16 3:24 AM) (03/08/16 12:30 PM) RDW [11.5-14.5 %] 16.2 % 16.1 % *HI* *HI* (03/09/16 3:24 AM) (03/08/16 12:30 PM) Platelet [133-450 147 K/CMM K/CMM] (03/09/16 3:24 AM) Platelet [133-450] See Note (03/08/16 12:30 PM) MPV [7.4-10.4 fL] 8.9 fL 8.8 fL (03/09/16 3:24 AM) (03/08/16 12:30 PM) Segs [45.0-75.0 %] 70.4 % 71.2 % (03/09/16 3:24 AM) (03/08/16 12:30 PM) Lymphocytes 19.5 % 22.2 % [20.0-40.0 %] *LOW* (03/08/16 12:30 PM) (03/09/16 3:24 AM) Monocytes [2.0-12.0 8.4 % 6.2 % %] (03/09/16 3:24 AM) (03/08/16 12:30 PM) Eosinophils [0.0-4.0 1.5 % 0.3 % %] (03/09/16 3:24 AM) (03/08/16 12:30 PM) Basophils [0.0-1.0 0.2 % 0.1 % %] (03/09/16 3:24 AM) (03/08/16 12:30 PM) Segs-Bands # 6.6 K/CMM 9.6 K/CMM [1.5-8.1 K/CMM] (03/09/16 3:24 AM) *HI* (03/08/16 12:30 PM) Lymphocytes # 1.8 K/CMM 3.0 K/CMM [1.0-5.5 K/CMM] (03/09/16 3:24 AM) (03/08/16 12:30 PM) Monocytes # [0.0-0.8 0.8 K/CMM 0.8 K/CMM K/CMM] (03/09/16 3:24 AM) (03/08/16 12:30 PM) Eosinophils # 0.1 K/CMM [0.0-0.5 K/CMM] (03/09/16 3:24 AM) RBC Morph Normal (03/08/16 12:30 PM) Plt Morph Clumped 1 (03/08/16 12:30 PM) 1Result Comment: platelets clump-suggesting ordering platelet count on a blue top tube 03/08/2016 13:53 tdh Immunizations No data available for this section Procedures Procedure Date Related Diagnosis Body Site Gastric bypass1 Partial hysterectomy [id number] Social History Social History Type Response Substance Abuse Use: None. Alcohol Current, Frequency: 1-2 times per month. Smoking Status Current some day smoker; Type: Cigarettes; Exposure to Tobacco Smoke None; Cigarette Smoking Last 365 Days No; Reg Smoking Cessation Counseling No Assessment and Plan No data available for this section
--- OUTSIDE RECORDS SUMMARY | 2018-10-30 11:35 | XMS REPORT | Summary of Care ---
Author Author [facility] Organization [facility] Address Unknown Phone Unavailable Encounter HQ Haja_juan carlos(FIN) [id number] Date(s): 12/04/16 - 12/04/16 [facility] [address] [place] [address] [phone] Discharge Disposition: Home or Self Care Attending Physician: Maxim Swan MD Vital Signs No data available for this section Problem List Condition Effective Dates Status Health Status Informant Apnea, Resolved sleep(Confirmed) Diabetes(Confirmed) Resolved HDL - High density Resolved lipoprotein cholesterol(Confirme d) HTN Resolved (hypertension)(Confi rmed) Allergies, Adverse Reactions, Alerts Substance Reaction Severity Status NKDA Active Medications No data available for this section Results No data available for this section Immunizations No data available for this section Procedures Procedure Date Related Diagnosis Body Site Gastric bypass1 Partial hysterectomy 2015 Social History Social History Type Response Substance Abuse Use: None. Alcohol Current, Frequency: 1-2 times per month. Smoking Status Current some day smoker; Type: Cigarettes; Exposure to Tobacco Smoke None; Cigarette Smoking Last 365 Days No; Reg Smoking Cessation Counseling No Assessment and Plan No data available for this section
--- OUTSIDE RECORDS SUMMARY | 2018-10-30 11:36 | XMS REPORT ---
Author Author [facility] Address Unknown Phone Unavailable Care Team Providers Care Chief Of Service Name Role Phone Unavailable Unavailable Problems This patient has no known problems. Allergies, Adverse Reactions, Alerts This patient has no known allergies or adverse reactions. Medications This patient has no known medications. Encounters Start Date/Time End Date/Time Encounter Type Admission Type Attending Clinicians Care Facility Care Department Encounter ID 2018-05-08 00:00:00 2018-05-09 00:00:00 [facility] [id number]
[2018-10-30] MEDS ORDERED: ORPHENADRINE CITRATE 30 MG/ML VIAL IM ONE (12:30)
[2018-10-30] MEDS ORDERED: DEXAMETHASONE SOD PHOS 10 MG/1 ML VIAL IV ONE (13:00)
[2018-10-30] MEDS ORDERED: KETOROLAC TROMETHAMINE 30 MG/ML VIAL IV ONE (13:00)
--- NOTE | 2018-10-30 13:14 | Diagnostic Imaging Report ---
Exams: Head and cervical spine CTs without IV contrast History: Fall, pain Comparison studies: None. Technique: Axial images were obtained from the brain and cervical spine. Coronal and sagittal images reconstructed from the axial data. Dose modulation, iterative reconstruction, and/or weight based adjustment of the mA/kV was utilized to reduce the radiation dose to as low as reasonably achievable. Intravenous contrast: None Findings: Head CT: Scalp: No abnormalities. Bones: No fractures, blastic or lytic lesions. Extra-axial spaces: No masses. No fluid collections. Brain sulci: Appropriate for age. Ventricles: Normal in size and configuration. No hydrocephalus. Parenchyma: No abnormal densities. No masses, hemorrhage, acute or chronic vascular insults. Sellar/suprasellar region: No abnormalities. Craniocervical junction: The foramen magnum is patent. No Chiari one malformation. Cervical spine CT: Fractures: None. Soft tissues: No gross abnormalities. Atlantoaxial articulation: Intact. Alignment: Normal lordosis. No subluxations. Cervicomedullary junction: No abnormalities. The foramen magnum is patent. Vertebrae: No infection or neoplasm. Degenerative changes: Mildly degenerated C5-C6 and C6-C7 discs. No significant canal stenosis. Mild uncovertebral arthrosis on the left at C3-C4 and bilaterally at C6-C7 without significant foraminal stenosis. Incidental findings: Punctate left parotid dystrophic calcification or sialolith. Nonspecific 4 mm left thyroid calcification. Small nonspecific secretions in the right sphenoid sinus. IMPRESSION: Head CT: No acute abnormalities. Cervical spine CT: 1. No cervical spine fracture or subluxation. 2. Mild degenerative changes. 3. Please note, cannot adequately ligament, spinal cord and or vascular abnormalities on the basis of this examination. Signed by: Dr. Beni Chambers M.D. on 10/30/2018 1:11 PM
--- NOTE | 2018-10-30 14:50 | Diagnostic Imaging Report ---
EXAM: SP LUMBAR, COMPLETE MIN 4VW DATE: 10/30/2018 12:16 PM INDICATION: ^pain s/p fall ^[id number] ^1220 ^Y pain COMPARISON: None FINDINGS: Advanced endplate and facet degenerative changes present. Minimal height loss T11 and T12 likely projectional and/or developmental. Alignment is satisfactory. No distinct fracture. IMPRESSION: Advanced degenerative changes. Given history, if concern remains, CT would be recommended. Signed by: Dr. Sourav Aguilar MD on 10/30/2018 2:47 PM
[2018-10-30 15:36] VITALS: BP 122/83
== END 2018-10-30 15:50 | disposition home or self-care (01) ==
LOC: ER 11:30
DX: S00.83XA Contusion of other part of head, initial encounter (principal); M54.5 Low back pain; G89.29 Other chronic pain; W01.0XXA Fall on same level from slipping, tripping and stumbling without subsequent striking against object, initial encounter; Y92.008 Other place in unspecified non-institutional (private) residence as the place of occurrence of the external cause; F32.9 Major depressive disorder, single episode, unspecified
CPT/HCPCS: 70450; 72110; 72125; 99283; J1100; J1885; J2360

== ENCOUNTER 2018-11-08 09:12 | Emergency (ER) | payer MEDICARE ==
[~2018-11-08] VITALS: Ht 167.6 cm; Wt 68.0 kg
--- OUTSIDE RECORDS SUMMARY | 2018-11-08 09:17 | XMS REPORT | Clinical Summary ---
Author Author [facility] Address Unknown Phone Unavailable Care Team Providers Care [employer] Name Role Phone Justice Luna MD PCP [...] (Primary Dx) 05/05/2018 Office Visit Neurosurgery after 11/07/2017 Family History Medical History Relation Name Comments [...] CERVICAL CANCER SCREENING 1994 INFLUENZA VACCINE 06/23/2018 Results Not on fileafter 11/07/2017 Insurance Payer Benefit Subscriber ID Type Phone Address Plan / Group MEDICARE MEDICARE xxxxxxxxxx Medicare [place] MEDICA[place] MEDICAID xxxxxxxxx Medicaid Advance Directives Patient has advance care planning documents on file. For more information, arnol jimenez contact: Tin Spencer [address] [place] [address]
[2018-11-08 09:57] LABS: BASOPHILS % 0.1 % (0.0-1.0); EOSINOPHILS % 0.3 % (0.0-6.0); HEMOGLOBIN 13.3 g/dL (12.0-16.0); LYMPHOCYTES # (AUTO) 1.8 (1.0-3.2); LYMPHOCYTES % 26.4 % (18.0-39.1); MEAN CORPUSCULAR VOLUME 88.6 fL (81-99); MONOCYTES # (AUTO) 0.4 (0.2-0.8); MONOCYTES % 5.5 % (4.4-11.3); NEUTROPHILS # (AUTO) 4.5 (2.1-6.9); NEUTROPHILS % 67.4 % (38.7-80.0); PLATELET COUNT 224 x10e3/uL (140-360); RED BLOOD COUNT 4.29 x10e6/uL (3.6-5.1); RED CELL DISTRIBUTION WIDTH 12.7 % (11.7-14.4)
[2018-11-08] MEDS ORDERED: KETOROLAC TROMETHAMINE 30 MG/ML VIAL IV STA (09:58)
[2018-11-08] MEDS ORDERED: HYDROCODONE/APAP 5MG-325MG TAB PO ONE (10:00)
[2018-11-08 10:12] LABS: ALANINE AMINOTRANSFERASE 11 IU/L (0-55); ALBUMIN 3.9 g/dL (3.5-5.0); ALBUMIN/GLOBULIN RATIO 0.9 (0.8-2.0); ALKALINE PHOSPHATASE 104 IU/L (40-150); ANION GAP 17.2 mmol/L (8-16); BLOOD UREA NITROGEN 27 mg/dL (7-26); BUN/CREATININE RATIO 26 (6-25); CALCIUM 9.4 mg/dL (8.4-10.2); CARBON DIOXIDE 27 mmol/L (22-29); CHLORIDE 102 mmol/L (98-107); CREATININE, SERUM 1.02 mg/dL (0.57-1.11); EST GLOMERULAR FILTRATION RATE 59 ML/MIN (60-); GLUCOSE 187 mg/dL (74-118); MAGNESIUM 2.4 MG/DL (1.3-2.1); PHOSPHORUS 3.3 MG/DL (2.3-4.7); POTASSIUM 4.2 mmol/L (3.5-5.1); SODIUM 142 mmol/L (136-145)
[2018-11-08] MEDS ORDERED: ONDANSETRON HCL INJ 2 MG/ML VIAL IV STA (10:17)
[2018-11-08 11:09] LABS: BILIRUBIN,URINE 1+ (NEGATIVE); CLARITY,URINE CLOUDY (CLEAR); COLOR,URINE YELLOW (YELLOW); KETONES,URINE 1+ (NEGATIVE); LEUKOCYTE ESTERASE ,URINE 1+ (NEGATIVE); NITRITE,URINE POSITIVE (NEGATIVE); PROTEIN,URINE DIPSTICK 1+ (NEGATIVE); URINE UROBILINOGEN 0.2 mg/dL (0.2 - 1)
[2018-11-08 11:10] LABS: BACTERIA,URINE MODERATE /HPF; EPITHELIAL CELLS,URINE FEW /LPF; WBC,URINE (MAN) 21-50 /HPF (0-5)
[2018-11-08] MEDS ORDERED: LEVOFLOXACIN 750MG/D5W 150ML 150 ML IV ONE (11:30)
--- NOTE | 2018-11-08 12:36 | Diagnostic Imaging Report ---
AP and Lateral views of the thoracic and lumbar spine HISTORY: Fall, pain, fell down 10 stairs, one week ago COMPARISON: Lumbar spine radiographs October 30, 2018 FINDINGS: Some of the osseous structures are partially obscured by stool and overlying bowel gas. Multilevel, flowing, nonmarginal syndesmophytes throughout the thoracolumbar spine, with relative preservation of the disc spaces. Postsurgical changes in the gastroesophageal region. Thoracic spine: Mild right convex curvature. Straightening of the lower thoracic kyphosis. Stable appearing age-indeterminate subtle anterior wedging of T12, which may be physiologic. Lumbar spine: There are 5 non-rib bearing lumbar-type vertebral bodies. Mild focal kyphosis at T12-L1. On one of the images, subtle age-indeterminate angular contour near the superior endplate of L1. Mild multilevel degenerative disc changes. Multilevel hypertrophic facet degenerative changes, moderate to severe throughout the lumbosacral spine, most notably at L5-S1. IMPRESSION: 1. Questionable subtle age-indeterminate compression deformity near the superior endplate of L1; however, the T12 and L1 morphology may be physiologic related to degenerative changes. In the setting of persistent pain localizing to this region, a follow-up MRI of the lumbar spine without contrast would provide further valuation for a superimposed subacute subtle compression fracture. 2. DISH (Diffuse idiopathic skeletal hyperostosis). 3. Multilevel degenerative changes. Signed by: Dr. Christian Brown D.O., M.M.M. on 11/08/2018 12:32 PM
--- NOTE | 2018-11-08 12:57 | Diagnostic Imaging Report ---
Frontal and lateral views of the chest. HISTORY: Fever, cough, SOB, back pain, vomiting COMPARISON: None available. DISCUSSION: Lungs: The lungs are well inflated. No evidence of a consolidative pneumonia or pulmonary alveolar edema. Pleura: No pleural effusion or pneumothorax. Heart and mediastinum: The cardiomediastinal silhouette appears unremarkable. Bones: Scattered degenerative changes. Right convex curvature of the thoracic spine. The thoracolumbar junction is partially obscured. IMPRESSION: 1. No consolidative pneumonia. 2. Please refer to the separate thoracic spine radiographs from this date regarding the thoracic spine discussion and impression. Signed by: Dr. Christian Brown D.O., M.M.M. on 11/08/2018 12:54 PM
[2018-11-08] MEDS ORDERED: CEFPODOXIME PR200 MG PO (13:39)
[2018-11-08] MEDS ORDERED: KETOROLAC TROME10 MG PO (13:39)
[2018-11-08] MEDS ORDERED: PREDNISONE20 MG PO (13:39)
== END 2018-11-08 13:50 | disposition home or self-care (01) ==
LOC: ER 09:12
DX: M54.6 Pain in thoracic spine (principal); M54.5 Low back pain; S23.3XXA Sprain of ligaments of thoracic spine, initial encounter; S39.012A Strain of muscle, fascia and tendon of lower back, initial encounter; W01.0XXA Fall on same level from slipping, tripping and stumbling without subsequent striking against object, initial encounter; Y92.008 Other place in unspecified non-institutional (private) residence as the place of occurrence of the external cause; F32.9 Major depressive disorder, single episode, unspecified
CPT/HCPCS: 36415; 71046; 72072; 72100; 80053; 81001; 83605; 83735; 84100; 84484; 85025; 87040; 87086; 87186; 87400; 99284; J1885; J2405

== ENCOUNTER 2025-01-05 23:48 | Emergency (ER) | payer MEDICARE ==
[~2025-01-05] VITALS: Ht 162.6 cm; Wt 49.9 kg
[~2025-01-05 23:48] MED LIST changes: +ACETAMINOPHEN-1 EAC4 PO; +ATORVASTATIN CA20 MG PO; +CEFPODOXIME PR200 MG PO; +COMBIGAN EYE DRO5 ML OP; +FARXIGA5 MG PO; +FUROSEMIDE40 MG PO; +IRON PO; +KETOROLAC TROME10 MG PO; +LEVOCETIRIZINE D5 MG PO; +LINZESS145 MCG PO; +LUMIGAN2.5 M1 OU; +MOUNJARO7.5 MG/0.5 SQ; +NEURONTIN400 MG PO; +PANTOPRAZOLE SO40 MG PO; +PREDNISONE20 MG PO; +QUETIAPINE FUMA25 MG PO; +SPIRONOLACTONE25 MG PO; +TRAZODONE HCL100 MG PO
[2025-01-05 23:57] VITALS: TEMP 98.2
[2025-01-06 00:41] LABS: BASOPHILS % 0.4 % (0.0-1.0)
[2025-01-06 00:43] LABS: OPIATES SCREEN,URINE POSITIVE (NEGATIVE)
[2025-01-06 00:44] LABS: AMPHETAMINES SCREEN,URINE NEGATIVE (NEGATIVE); BENZODIAZEPINES SCREEN,URINE POSITIVE (NEGATIVE); CANNABINOIDS SCREEN,URINE POSITIVE (NEGATIVE); COCAINE SCREEN,URINE NEGATIVE (NEGATIVE); METHADONE SCREEN, URINE NEGATIVE (NEGATIVE); PHENCYCLIDINE SCREEN,URINE NEGATIVE (NEGATIVE)
[2025-01-06 00:46] LABS: BILIRUBIN,URINE NEGATIVE (NEGATIVE); CLARITY,URINE CLEAR (CLEAR); COLOR,URINE YELLOW (YELLOW); GLUCOSE, URINE >=1000 (NEGATIVE); KETONES,URINE TRACE (NEGATIVE); LEUKOCYTE ESTERASE ,URINE NEGATIVE (NEGATIVE); NITRITE,URINE NEGATIVE (NEGATIVE); PH,URINE 5.5 (5 - 7); PROTEIN,URINE DIPSTICK NEGATIVE (NEGATIVE); URINE UROBILINOGEN 0.2 mg/dL (0.2 - 1)
[2025-01-06 01:04] LABS: ANION GAP 14.5 mmol/L (8-16); CREATININE, SERUM 1.06 mg/dL (0.57-1.11); MAGNESIUM 1.9 MG/DL (1.3-2.1); POTASSIUM 4.5 mmol/L (3.5-5.1)
[2025-01-06 01:05] LABS: ALBUMIN 3.7 g/dL (3.5-5.0); ALBUMIN/GLOBULIN RATIO 1.2 (0.8-2.0); BILIRUBIN,TOTAL 0.4 mg/dL (0.2-1.2); TOTAL PROTEIN 6.9 g/dL (6.5-8.1)
[2025-01-06 01:22] LABS: BACTERIA,URINE FEW /HPF; EPITHELIAL CELLS,URINE FEW /LPF; RBC,URINE 0-5 /HPF (0-5); WBC,URINE (MAN) 0-5 /HPF (0-5)
[2025-01-06 01:27] LABS: HEMATOCRIT 31.6 % (34.2-44.1); MEAN CORPUSCULAR HEMOGLOBIN 31.5 pg (28-32); MEAN CORPUSCULAR VOLUME 90.5 fL (81-99); RED BLOOD COUNT 3.49 x10e6/uL (3.6-5.1); WHITE BLOOD COUNT 4.58 x10e3/uL (4.8-10.8)
[2025-01-06 01:28] LABS: LYMPHOCYTES % 37.8 % (18.0-39.1); MEAN CORPUSCULAR HGB CONC 34.8 g/dL (31-35); MONOCYTES % 11.4 % (4.4-11.3); NEUTROPHILS % 48.5 % (38.7-80.0); PLATELET COUNT 144 x10e3/uL (140-360); RED CELL DISTRIBUTION WIDTH 14.5 % (11.7-14.4)
[2025-01-06 01:29] LABS: EOSINOPHILS % 1.7 % (0.0-6.0); LYMPHOCYTES # (AUTO) 1.7 (1.0-3.2); NEUTROPHILS # (AUTO) 2.2 (2.1-6.9)
[2025-01-06 01:30] LABS: EOSINOPHILS # (AUTO) 0.1 (0.0-0.4); MONOCYTES # (AUTO) 0.5 (0.2-0.8)
[2025-01-06 01:49] LABS: FREE THYROXINE INDEX 2.5736 (1.4-3.8); T3 UPTAKE 32.05 % (22.5-37.0); T4 (THYROXINE) 8.03 ug/dL (4.5-10.9)
[2025-01-06 01:50] LABS: THYROID STIMULATING HORMONE 1.009 uIU/mL (0.350-4.940)
[2025-01-06 02:26] VITALS: PULSE 70; RESP 18; O2SAT 100
== END 2025-01-06 02:30 | disposition home or self-care (01) ==
LOC: ER 23:52
DX: R53.83 Other fatigue (principal); I10 Essential (primary) hypertension; E11.40 Type 2 diabetes mellitus with diabetic neuropathy, unspecified; E78.5 Hyperlipidemia, unspecified; F32.A Depression, unspecified; M54.9 Dorsalgia, unspecified; G89.29 Other chronic pain
CPT/HCPCS: 36415; 80053; 80307; 80320; 81001; 83735; 84100; 84436; 84443; 84479; 85025; 99283

== ENCOUNTER 2025-05-02 09:15 | Emergency (ER) | payer MEDICARE ==
[~2025-05-02] VITALS: Ht 162.6 cm; Wt 49.9 kg
[2025-05-02 09:15] VITALS: TEMP 98
[2025-05-02] MEDS: SODIUM CHLORIDE 0.9% 1000ML 1,000 ML IV ONE (09:56)
[2025-05-02] MEDS: ONDANSETRON HCL INJ 2MG/ML 2ML 2 MG/ML VIAL IV STA (09:56)
[2025-05-02 10:27] LABS: BASOPHILS % 0.4 % (0.0-1.0); EOSINOPHILS % 0.4 % (0.0-6.0); HEMATOCRIT 38.6 % (34.2-44.1); HEMOGLOBIN 13.6 g/dL (12.0-16.0); LYMPHOCYTES # (AUTO) 1.6 (1.0-3.2); LYMPHOCYTES % 19.8 % (18.0-39.1); MEAN CORPUSCULAR HEMOGLOBIN 29.8 pg (28-32); MEAN CORPUSCULAR HGB CONC 35.2 g/dL (31-35); MEAN CORPUSCULAR VOLUME 84.5 fL (81-99); MONOCYTES # (AUTO) 0.4 (0.2-0.8); MONOCYTES % 5.3 % (4.4-11.3); NEUTROPHILS # (AUTO) 5.9 (2.1-6.9); NEUTROPHILS % 73.8 % (38.7-80.0); PLATELET COUNT 171 x10e3/uL (140-360); RED BLOOD COUNT 4.57 x10e6/uL (3.6-5.1); RED CELL DISTRIBUTION WIDTH 14.3 % (11.7-14.4)
[2025-05-02 10:30] VITALS: PULSE 79; RESP 18; O2SAT 98
[2025-05-02 10:33] LABS: ALANINE AMINOTRANSFERASE 10 IU/L (0-55); ALBUMIN 4.2 g/dL (3.5-5.0); ALBUMIN/GLOBULIN RATIO 1.2 (0.8-2.0); ALKALINE PHOSPHATASE 67 IU/L (40-150); ANION GAP 18.1 mmol/L (8-16); BILIRUBIN,TOTAL 0.6 mg/dL (0.2-1.2); BLOOD UREA NITROGEN 20 mg/dL (7-26); BUN/CREATININE RATIO 18 (6-25); CALCIUM 9.1 mg/dL (8.4-10.2); CARBON DIOXIDE 23 mmol/L (22-29); CHLORIDE 102 mmol/L (98-107); CREATININE, SERUM 1.11 mg/dL (0.57-1.11); EST GLOMERULAR FILTRATION RATE 60 ML/MIN (>=60); GLUCOSE 141 mg/dL (74-118); POTASSIUM 4.1 mmol/L (3.5-5.1); SODIUM 139 mmol/L (136-145); TOTAL PROTEIN 7.6 g/dL (6.5-8.1)
[2025-05-02 10:49] LABS: INR 1.01; PROTHROMBIN TIME 14.2 seconds (11.9-14.5)
[2025-05-02 10:50] LABS: PARTIAL THROMBOPLASTIN TIME 28.1 seconds (23.8-35.5)
[2025-05-02 10:59] LABS: LIPASE 38 U/L (8-78)
[2025-05-02] MEDS ORDERED: PANTOPRAZOLE SO40 MG PO (11:34)
[2025-05-02] MEDS ORDERED: ONDANSETRON ODT4 MG PO (11:34)
[2025-05-02] MEDS ORDERED: DICYCLOMINE HCL20 MG PO (11:34)
== END 2025-05-02 11:40 | disposition home or self-care (01) ==
LOC: ER 09:26
DX: R10.32 Left lower quadrant pain (principal); R11.2 Nausea with vomiting, unspecified; I10 Essential (primary) hypertension; E11.65 Type 2 diabetes mellitus with hyperglycemia; E11.40 Type 2 diabetes mellitus with diabetic neuropathy, unspecified; E78.5 Hyperlipidemia, unspecified; M54.9 Dorsalgia, unspecified; G89.29 Other chronic pain; F32.A Depression, unspecified; Z98.84 Bariatric surgery status
CPT/HCPCS: 36415; 74177; 80053; 83690; 83735; 84702; 85025; 85610; 85730; 99284; J2405; J2470; J7030